=== PATIENT | male | born 1965 | race Caucasian/White ===

== ENCOUNTER 2019-04-15 15:33 | Emergency (ER) | payer OTHER, SELFPAY ==
[2019-04-15 15:35] VITALS: BP 161/88; PULSE 63; RESP 16; TEMP 36.6; O2SAT 98; BMI 28.6
--- NOTE | 2019-04-15 16:06 | EKG12_ITS ---
Test Reason : PALPITATIONS Blood Pressure : / mmHG Vent. Rate : 056 BPM Atrial Rate : 056 BPM P-R Int : 162 ms QRS Dur : 086 ms QT Int : 426 ms P-R-T Axes : 067 061 040 degrees QTc Int : 411 ms Sinus bradycardia Otherwise normal ECG Confirmed by ANANYA BRADSHAW, PINO ([id number]), restaurant expeditor GRISEL WARD ([id number]) on 04/19/2019 11:26:18 AM Referred By: ROSETTA Confirmed By:PINO HARE MD
--- NOTE | 2019-04-15 16:06 | ED.VIS.GEN ---
History of Present Illness Chief Complaint: Palpitations Detail of Chief Complaint: Palpitations, short of breath, syncope Informant: Patient, Family Onset: Weeks Current Severity: Mild Maximum Severity: Moderate Narrative: Patient presents with a one-week history of shortness of breath. He states he will to stop and take a few deep breaths to catch his breath. He feels like his heart is beating very hard during these times and somewhat irregularly. He states he feels intermittently lightheaded and dizzy. 3 days ago he got up at 12:30 in the morning to go the restroom. He did use the restroom and washed his hands and while standing there had a brief syncopal event. He fell and hit his knee against the doorway. He states he went back to bed and felt fine the rest of that day. Past Medical History - Allergies and Home Meds Allergies/Adverse Reactions: Allergies No Known Allergies Allergy (Verified 04/15/19 15:34) Primary Care Physician: Fuad Keith III, MD [Primary Care Provider] - As soon as possible Prior records reviewed: Yes Past Medical History: - - Reviewed Lives: Spouse/ Significant Other Review of Systems General: Denies: Chills, Fever Eyes: Denies: Visual changes - bilaterally ENT: Denies: Bilateral ear pain Cardiovascular: Reports: Chest pain, Palpitations Respiratory: Reports: Dyspnea. Denies: Cough, Sputum Gastrointestinal: Denies: Abdominal pain, Nausea, Vomiting Musculoskeletal: Reports: Arthralgias Skin: Denies: Rash Neurological: Denies: Headache, Weakness, Parasthesia Psych: Denies: Depression Allergy: Denies: Uticaria Physical Exam Vital Signs/Narrative: Vital Signs Temp Pulse Resp BP Pulse Ox 04/15/19 15:35 97.8 F 63 16 161/88 H 98 Inital Vital Signs reviewed: Yes General: Well nourished, Well developed Head: Normocephalic ENT: Moist mucous membranes Neck: Supple Cardiovascular: Regular rate, Regular rhythm Respiratory: No distress, CTA bilaterally Abdomen: Soft, Nontender, Nondistended Extremities: Nontender Skin: Normal color Neurological: Alert, Oriented x3 Psychological: Normal affect Diagnostic/Tx/Re-eval Impressions Chest X-Ray 04/15/19 16:08 IMPRESSION: Normal x-ray examination of the chest. Electronically Signed: Matt Drummond MD at 16:22 EDT , Service support , 04/15/19 16:08 Chest 1 View (Portable) [RAD] Stat Laboratory Results 04/15/19 04/15/19 04/15/19 16:15 16:15 16:15 WBC 5.4 RBC 5.01 Hgb 15.5 Hct 46.4 MCV 92.6 MCH 30.9 MCHC 33.4 RDW Std Deviation 42.3 RDW Coeff of Evan 12.3 Plt Count 160 MPV 9.8 Immature Gran % (Auto) 0.200 Neut % (Auto) 63.5 Lymph % (Auto) 23.3 [place] % (Auto) 9.7 Eos % (Auto) 2.4 Baso % (Auto) 0.9 Absolute Neuts (auto) 3.4 Absolute Lymphs (auto) 1.25 Nucleated RBC % 0 D-Dimer Quant (PE/DVT) 0.46 Sodium 140 Potassium 4.0 Chloride 106 Carbon Dioxide 32.0 Anion Gap 2 L BUN 21 H Creatinine 1.11 Estim Creat Clear Calc 83.50 Est GFR (MDRD) Af Amer 89 Est GFR (MDRD) Non-Af 73 BUN/Creatinine Ratio 18.9 Glucose 89 Calcium 9.3 Troponin I < 0.015 TSH 1.21 - EKG Initial EKG Interpretation: Sinus Bradycardia - Sinus bradycardia at 56 bpm. No acute ischemia. - Medical Decision Making Repeat evaluation patient is resting comfortably. He had no further episodes of palpitations or shortness of breath here. I did discuss with him that typically after syncopal episodes we will recommend observation for monitoring. Patient syncopal episode however occurred 3 days ago. I did recommend he follow with his primary care physician and may need to consider a Holter monitor if he continues to have symptoms. He states he will think about this but will definitely follow-up with his doctor. He was noted to have heart rates dropped into the upper 40s when laying at rest. I advised him that this could certainly make him lightheaded and dizzy, however the patient was not having symptoms at that time he was noted to have these low heart rates while in the emergency room. Patient and are both comfortable with outpatient follow-up. If patient worsens he will return to the ER immediately. ED Disposition - Plan for ED Patient: Disposition: Home or Assisted Living Diagnosis: Palpitations, Syncope Instructions: Palpitations, SYNCOPE, Unk Cause Referrals: Fuad Keith III, MD [Primary Care Provider] - As soon as possible
--- NOTE | 2019-04-15 16:08 | RAD_ITS ---
STUDY: X-RAY CHEST REASON FOR EXAM: Male, 54 years old. Shortness of breath TECHNIQUE: Single AP portable view of the chest. COMPARISON: None. FINDINGS: lunchroom monitor leads are present. The lungs are clear and expanded. There is no demonstrated pleural abnormality. Normal size heart. Normal mediastinum and anuradha. Normal visualized pulmonary arteries. Normal visualized aortic arch and descending thoracic aorta. Normal visualized thoracic spine. Normal visualized ribs, clavicles, and shoulders. There is no demonstrated abnormality of the visualized soft tissue structures of the upper abdomen. RAD/Chest 1 View (Portable) IMPRESSION: Normal x-ray examination of the chest. Electronically Signed: Matt Drummond MD at 16:22 EDT , Service support ,
[2019-04-15 16:20] LABS: Absolute Lymphocyte Count 1.25 X10^3/uL (0.83-4.51); Absolute Neutrophil Count 3.4 X10^3/uL (2.0-7.7); Basophil# 0.05 X10^3/uL; Basophil% 0.9 % (0-1); Eosinophil# 0.13 X10^3/uL; Eosinophils% 2.4 % (0-5); Hematocrit 46.4 % (40-54); Hemoglobin 15.5 g/dL (13.0-16.5); Lymphocyte # 1.25 X10^3/ul (4.0); Lymphocyte % 23.3 % (19-41); Mean Corp Hgb Conc 33.4 g/dL (32-36); Mean Corpuscular Hgb 30.9 pg (27.0-32.0); Mean Corpuscular Volume 92.6 fL (80-94); Mean Platelet Vol. 9.8 fl (6.2-12.0); Monocyte# 0.52 X10^3/uL; Monocyte% 9.7 % (0-10); NRBC Flagged by Analyzer 0 % (0-5); Neutrophil % 63.5 % (47-70); Platelet Count 160 K/mm3 (150-450); RBC Distribution Width CV 12.3 % (11.6-14.6); RBC Distribution Width SD 42.3 fl (35.1-43.9); Red Blood Count 5.01 M/mm3 (4.6-6.2); White Blood Count 5.4 K/mm3 (4.4-11.0)
[2019-04-15] MEDS: 0.9% Normal Saline 1,000 ML 150 ML IV (16:25)
[2019-04-15 16:27] VITALS: BP 137/80; PULSE 54; RESP 15; O2SAT 96
[2019-04-15 16:47] LABS: Anion Gap 2 (5-15); BUN 21 mg/dL (7-18); BUN/Creat Ratio 18.9 RATIO (10-20); Calcium,Total 9.3 mg/dL (8.5-10.1); Chloride 106 mmol/L (98-107); Creatinine, Serum 1.11 mg/dL (0.70-1.30); EST Glomerular Filtration Rate 73 mL/min (>60); Est Glom Filt Rate - Afr Amer 89 mL/min (>60); Glucose 89 mg/dL (74-106); Sodium Level 140 mmol/L (136-145); Thyroid Stim Hormone (TSH) 1.21 uIU/mL (0.358-3.74)
[2019-04-15 17:09] LABS: D-Dimer Quantitative (DVT/PE) 0.46 FEU/ug/m (0.27-0.49)
[2019-04-15 17:42] VITALS: BP 160/97; PULSE 49; RESP 11; O2SAT 97
[2019-04-15 18:13] VITALS: BP 152/99; PULSE 54; RESP 10; O2SAT 98
== END 2019-04-15 18:14 | disposition home or self-care (01) ==
PROVIDERS: Emergency Provider Emergency Medicine; Family Provider Family Medicine; PCP Family Medicine
DX: R00.2 Palpitations (principal); R55 Syncope and collapse
CPT/HCPCS: 71045; 80048; 84443; 84484; 85025; 85379; 93005; 99284; A4216

== ENCOUNTER 2021-09-11 08:22 | Outpatient (CLI) | payer OTHER, SELFPAY ==
--- NOTE | 2021-09-11 08:24 | EKG12_ITS ---
Test Reason : PREOP Blood Pressure : / mmHG Vent. Rate : 058 BPM Atrial Rate : 058 BPM P-R Int : 158 ms QRS Dur : 088 ms QT Int : 388 ms P-R-T Axes : 080 070 039 degrees QTc Int : 380 ms Sinus bradycardia Otherwise normal ECG Confirmed by ANANYA BRADSHAW, PINO ([id number]), newspaper or periodical editor GRISEL WARD ([id number]) on 09/12/2021 9:30:38 AM Referred By: THOR Confirmed By:PINO HARE MD
== END 2021-09-11 23:59 | disposition home or self-care (01) ==
LOC: PSN 08:22
PROVIDERS: PCP Family Medicine; Visit Provider Urology
DX: Z01.810 Encounter for preprocedural cardiovascular examination (principal)
CPT/HCPCS: 93005

== ENCOUNTER → 2025-05-17 | Outpatient (CLI) | payer OTHER, SELFPAY ==
[2025-05-17 13:12] LABS: Anion Gap 10 (5-15); BUN 18 mg/dL (4-19); BUN/Creat Ratio 17.2 RATIO (10-20); Calcium,Total 9.4 mg/dL (7.6-11.0); Carbon Dioxide 26.2 mmol/L (21.0-32.0); Chloride 103 mmol/L (98-108); Glucose 122 mg/dL (70-99); Potassium 3.9 mmol/L (3.3-5.1)
== END | disposition home or self-care (01) ==
LOC: LAB 11:30
PROVIDERS: PCP Pediatrics; Referring Provider Internal Medicine Cardiovascular Disease; Visit Provider Internal Medicine Cardiovascular Disease
DX: I48.92 Unspecified atrial flutter (principal)
CPT/HCPCS: 36415; 80048; 84443

== ENCOUNTER 2025-05-25 14:19 | Observation (INO) | payer OTHER, SELFPAY ==
[2025-05-24 10:19] VITALS: BMI 25.7
[2025-05-25] VITALS (9 sets, daily range): BP systolic 115–130; BP diastolic 68–81; PULSE 59–80; RESP 14–17; TEMP 36.6–36.7; O2SAT 95–98; BMI 26.4
--- NOTE | 2025-05-25 14:07 | ELECTROSTU_ITS ---
Electrophysiology Report Electrophysiology Report Procedure: Successful radiofrequency ablation for right sided cavo-isthmus dependent atrial flutter Indication: Recurrent atrial flutter Failing pharmacological rate control Findings: CONSENT Informed consent was obtained from the patient after explaining the procedural risks, benefits, and alternatives in detail. It was explained that the risks include but are not limited to pain, bleeding, infection, vascular injury, heart attack, stroke, pulmonary or peripheral embolism, abnormal heart rhythms, recurrence of the arrhythmia, heart block requiring permanent pacemaker implantation, cardiac perforation and tamponade, hemodynamic collapse, need for emergency surgery, adverse reaction to sedation, cardiac or respiratory arrest, and . A consent form with the signature of the patient was placed in the chart. PREPARATION The patient was brought to the EP lab in a fasting state. Peripheral IV access was obtained. Continuous ECG, blood pressure, and oxygen saturation monitoring were initiated. Self-adhesive external defibrillation pads were placed on the patient. In addition, conscious sedation with iv versed/fentanyl was administered. I was present with the patient for the duration of moderate sedation and supervised staff who had no other duties and monitored the patient for the entire procedure. Details of monitoring are stored in laboratory flow sheet. Chlorhexadine scrubs were performed to bilateral groins. The patient was prepped and draped in the usual sterile fashion. Baseline 12-LEAD ELECTROCARDIOGRAM sinus rhythm VENOUS ACCESS: Local anesthesia was achieved with 1% lidocaine injection. Right and left femoral vein access was obtained using the modified Seldinger technique. Four introducers sheaths: 7F x1 and 5F x 2 were placed in the left femoral vein and an long 8.5Fr RAMP sheath was advanced into the right femoral vein over J wires. BASELINE EP TESTING: The patient underwent electrophysiology study with coronary sinus catheter for left atrial recording and pacing. Refer to the scanned lab report for details. ENDOCARDIAL 3D MAPPING RIGHT ATRIAL THREE-DIMENSION MAPPING: Two quadrapolar catheter were advanced into the right atrium via the left femoral vein sheaths. One decapolar catheter was positioned in the Coronary sinus for LA pacing and then repositioned in the RA. Quadripolar catheters were positioned in the His and RV apical positions. Left and Right atrial, His and right ventricular signals were recorded. After baseline electrophysiologic testing, the patient was inducible for atrial flutter. Mapping showed this was a isthmus dependent clockwise flutter using post pacing intervals. Standard techniques for ablation of isthmus dependent atrial flutter were undertaken utilizing a 4 mm tip irrigated catheter. Post pacing intervals were used to determine that the flutter circuit was dependent on the cava tricuspid isthmus. CATHETER ABLATION: Radiofrequency energy was delivered utilizing a energy controlled system with power outputs ranging up to 35 avilez during continuous temperature and impedance monitoring. Radiofrequency applications ranged up to 60 seconds in duration. An impedance rise prompted discontinuation of radiofrequency energy and catheter tip examination. Multiple applications of RF energy were delivered in a linear fashion initiated at the tricuspid annulus and withdrawn to the superior aspect of the inferior vena cava/eustachian ridge. The atrial flutter terminated during RF ablation. It was noted patient had a pouch on the atrial side of the tricuspid isthmus. Further ablations were delivered to inside this pouch. After linear ablation, trans-isthmus conduction properties were assessed. Trans- isthmus conduction block was defined by a marked prolongation of the conduction time, as compared to the baseline, during pacing medial and lateral to the ablation line. In addition, widely split atrial electrograms with an isoelectric interval were demonstrated along the ablation line. After the catheter ablation endpoints were achieved, electroanatomical mapping was performed to confirm bidirectional isthmus block. END OF PROCEDURE: At the conclusion of the procedure, Protamine was administered to reverse anticoagulation. All catheters and introducers were removed, and manual pressure was held to achieve complete hemostasis. The patient tolerated the procedure well and was transferred to the recovery room in stable condition. I was present for and performed the entire procedure. FINDINGS: Sinus node recovery time was 1385 ms, CSNRT: 515 ms Antegrade Wenckebach cycle length was 490 ms. Atrial effective refractory period was 600/360 ms AV node effective refractory period was 600/200 ms Retrograde Wenckebach cycle length was 550 ms. Ventricular effective refractory period was 600/240 ms Baseline Isthmus conduction was 50 ms Post ablation Isthumus conduction was 150 ms CONTRAST None ESTIMATED BLOOD LOSS 20 mL Recommendations: 4 hours of bedrest. Ok for discharge to home in am.
--- OUTSIDE RECORDS SUMMARY | 2025-05-25 17:59 | XMS RPT_ITS | CCD ---
Author Organization [facility] Care Team Providers Care Piano Mechanic Name Role Phone DR JAMAL DAI Attending Unavailable MALAIKA, DR JAMAL Burgess Primary Care Unavailable DR JAMAL DAI Admitting Unavailable Dr. Deisy Mcgee Primary Care Provider Dr. Titus Rivera Attending Provider Dr. Guzman Cast Referring Provider [phone] Deisy Mcgee MD Primary Care Provider Deisy Mcgee MD Primary Care Provider Tannhof EMERGENCY PHYSICIAN.MANAGER ARMYRobertElizabeth Unavailable Gael EMERGENCY PHYSICIAN.MANAGER ARMY, Jet Unavailable [phone] OLY PENDLETON Primary Care Unavailable OLY PENDLETON Attending Unavailable SELF Referring Unavailable DEISY MCGEE Primary Care Unavailable DEISY MCGEE Referring Unavailable DEISY MCGEE Primary Care Unavailable JET MORIN Referring Unavailable DEISY MCGEE Primary Care Unavailable DEISY MCGEE Attending Unavailable Allergies Allergy Classification Reported Allergen(s) Allergy Type Date of Onset Reaction(s) Facility (14 sources) amLODIPine; Translations: [AMLODIPINE BESYLATE] Drug Allergy 07-19-2014 Other: See Comments [facility] (14 sources) Losartan; Translations: [LOSARTAN] Drug Allergy 08-15-2014 Other: See Comments [facility] Medications Current Medications Medication Drug Class(es) Dates Sig (Normalized) Sig (Original) aspirin 81 mg delayed release oral tablet (1 source) Platelet Aggregation Inhibitor, Nonsteroidal Anti-inflammatory Drug Start: 04-15-2019 take 81 mg by mouth once daily Aspirin Active 81 MG PO DAILY April 15, 2019 4:29pm atorvastatin 10 mg oral tablet (15 sources) HMG-CoA Reductase Inhibitor Start: 02-12-2024 End: 07-28-2024 take 1 tablet by mouth once daily atorvastatin (LIPITOR) 10 mg tablet Indications: Hyperlipidemia LDL goal Take 1 tablet by mouth once daily. 30 tablet 11 07/28/2024 Active Start: 07-15-2023 End: 08-14-2023 take 1 tablet by mouth once daily atorvastatin (LIPITOR) 10 mg tablet Indications: Hyperlipidemia LDL goal Take 1 tablet by mouth once daily. 30 tablet 11 07/15/2023 08/14/2023 Discontinued Start: 07-18-2022 take 1 tablet by artie th once daily atorvastatin (LIPITOR) 10 mg tablet Indications: Hyperlipidemia LDL goal Take 1 tablet by mouth once daily. 30 tablet 11 07/18/2022 Active Start: 07-12-2021 take 1 tablet by artie th once daily atorvastatin (LIPITOR) 10 mg tablet Indications: Hyperlipidemia LDL goal Take 1 tablet by mouth once daily. 30 tablet 11 07/12/2021 Active Start: 04-15-2019 take 20 mg by mouth once daily Atorvastatin Active 20 MG PO DAILY April 15, 2019 4:29pm Comment on above: Take 1 tablet by artie th once daily. azithromycin 250 mg oral tablet (1 source) Macrolide Antimicrobial Start: 06-04-20 End: 06-09-20 azithromycin (ZITHROMAX Z-MADALYN) 250 mg tablet Indications: Bronchitis Take 2 tablets day one, then, 1 tablet daily until gone. 6 tablet 0 06/04/2022 06/09/2022 Active Comment on above: Take 2 tablets day o ne, then, 1 tablet daily until gone. codeine phosphate 2 mg/ml / guaiFENesin 20 mg/ml oral solution (3 sources) Opioid Agonist Start: 04-07-20 End: 04-14-20 take 5 mL by mouth every six hours as needed for cough and cough codeine-guaiFENesin (GUAIFENESIN AC) 10-100 mg/5 mL syrup Indications: Acute cough Take 5 mL by mouth four times a day as needed for cough for up to 7 days. 118 mL 0 04/07/2023 04/14/2023 Active Start: 05-31-2022 End: 06-07-2022 take 5 mL by mouth every six hours as needed for cough and cough codeine-guaiFENesin (GUAIFENESIN AC) 10-100 mg/5 mL syrup Indications: Acute cough Take 5 mL by mouth four times daily as needed for cough for up to 7 days. 118 mL 0 05/31/2022 06/07/2022 Active Comment on above: Take 5 mL by mouth f our times daily as needed for cough for up to 7 days. Take 5 mL by mouth f our times a day as needed for cough for up to 7 days. hydroCHLOROthiazide 12.5 mg / lisinopril 20 mg oral tablet (12 sources) Thiazide Diuretic, Angiotensin Converting Enzyme Inhibitor Start: 03-24-20 take 1 tablet by mouth once daily in the morning lisinopril-hyd roCHLOROthiazi de (ZESTORETIC) 20-12.5 mg per tablet Take 1 tablet by mouth every morning. 30 tablet 11 03/24/2024 Active Start: 07-15-2023 End: 08-14-2023 take 1 tablet by mouth once daily lisinopril-hydroCHLOROthiazide (ZESTORET IC) 20-12.5 mg per tablet Take 1 tablet by mouth once daily. 30 tablet 07/15/2023 08/14/2023 Discontinued Start: 07-18-2022 take 1 tablet by artie th once daily lisinopril-hydroCHLOROthiazide (PRINZIDE,ZESTORETIC) 20-12.5 mg per tablet Take 1 tablet by mouth once daily. 30 tablet 07/18/2022 Active Start: 07-12-2021 take 1 tablet by artie th once daily lisinopril-hydroCHLOROthiazide (PRINZIDE,ZESTORETIC) 20-12.5 mg per tablet Take 1 tablet by mouth once daily. 30 tablet 07/12/2021 Active Start: 04-15-2019 Lisinopril-Hyd rochlorothiazide Active 1 EACH PO DAILY April 15, 2019 4:29pm Comment on above: Take 1 tablet by artie th once daily. Completed/Discontinued Medications Medication Drug Class(es) Dates Sig (Normalized) Sig (Original) benzonatate 100 mg oral capsule (6 sources) Non-narcotic Antitussive Start: 2 End: 3 take 1 capsule by mouth every eight hours as needed benzonatate (TESSALON PERLES) 100 mg capsule Take 1 capsule by mouth three times daily as needed for cough. 21 capsule 1 05/26/2022 04/07/2023 Discontinued Comment on above: Take 1 capsule by mo ut three times daily as needed for cough. hydroCHLOROthiazide 12.5 mg oral tablet (2 sources) Thiazide Diuretic Start: 4 End: 4 take 1 tablet by mouth once daily hydroCHLOROthiazide 12.5 mg tablet Indications: Essential hypertension, benign Take 1 tablet by mouth once daily. 30 tablet 5 02/18/2024 03/24/2024 Discontinued lisinopril 20 mg oral tablet (4 sources) Angiotensin Converting Enzyme Inhibitor Start: 4 End: 4 take 1 tablet by mouth once daily lisinopril (ZESTRIL) 20 mg tablet Indications: Essential hypertension, benign Take 1 tablet by mouth once daily. 30 tablet 6 08/14/2023 03/24/2024 Discontinued Comment on above: [facility] predniSONE 20 mg oral tablet (3 sources) Start: 2 End: 3 take 2 tablets by mouth once daily predniSONE (DELTASONE) 20 mg tablet Indications: Bronchitis Take 2 tablets by mouth once daily. 10 tablet 0 06/04/2022 08/22/2022 Discontinued Comment on above: Take 2 tablets by mo [facility] once daily. tamsulosin hydrochloride 0.4 mg oral capsule (2 sources) alpha-Adrenergi c Roland Start: 2 End: 2 take 1 capsule by mouth once daily at bedtime tamsulosin (FLOMAX) 0.4 mg Indications: Kidney stone Take 1 capsule by mouth daily at bedtime. 30 capsule 3 09/13/2021 05/31/2022 Discontinued Comment on above: Take 1 capsule by mo [facility] daily at bedtime. Problems Active Problems Problem Classification Problem Date Documented Da te Episodic/Chronic Anxiety disorders (13 sources) Anxiety; Translations: [Anxiety disorder, unspecified] Onset: 07-05-2015 07-05-2015 Chronic Cardiac dysrhythmias (1 source) Unspecified atrial flutter; Translations: [Atrial flutter, unspecified type (HCC)] Onset: 04-14-2025 Chronic Cardiac dysrhythmias (1 source) Palpitations; Translations: [Palpitations] Episodic Chronic obstructive pulmonary disease and bronchiectasis (1 source) Bronchitis; Translations: [Bronchitis, not specified as acute or chronic] Episodic Diabetes mellitus without complication (20 sources) Impaired fasting glycemia; Translations: [Impaired fasting glucose] Onset: 07-12-2016 07-12-2016 Episodic Disorders of lipid metabolism (20 sources) Hyperlipidemia; Translations: [Hyperlipidemia, unspecified] Onset: 09-12-2005 06-04-2015 Chronic Essential hypertension (19 sources) Benign essential hypertension; Translations: [Essential (primary) hypertension] Onset: 09-12-2005 09-12-2005 Chronic Immunizations and screening for infectious disease (2 sources) Vaccination needed; Translations: [Encounter for immunization] Onset: 04-03-2025 08-14-2023 Episodic Other lower respiratory disease (2 sources) Cough; Translations: [Acute cough] Episodic Other nervous system disorders (13 sources) Disorder of the peripheral nervous system; Translations: [Hereditary and idiopathic neuropathy, unspecified] Onset: 07-11-2016 07-11-2016 Chronic Other screening for suspected conditions (not mental disorders or infectious disease) (3 sources) Patient encounter status; Translations: [Encounter for screening for malignant neoplasm of prostate] Onset: 04-03-2025 Episodic Syncope (1 source) Syncope; Translations: [Syncope and collapse] Episodic Viral infection (1 source) Disease caused by 2019-nCoV; Translations: [COVID-19] Episodic Past or Other Problems Problem Classification Problem Date Documented Da te Episodic/Chronic Nonspecific chest pain (5 sources) Chest pain; Translations: [Chest pain, unspecified] Onset: 01-28-2006 Resolved: 06-30-2014 06-30-2014 Episodic Other connective tissue disease (5 sources) Lateral epicondylitis; Translations: [Lateral epicondylitis, unspecified elbow] Onset: 09-15-2008 Resolved: 06-30-2014 06-30-2014 Episodic Other nutritional; endocrine; and metabolic disorders (5 sources) Metabolic syndrome X; Translations: [Dysmetabolic syndrome X] Onset: 08-18-2007 Resolved: 07-05-2015 07-05-2015 Chronic Other nutritional; endocrine; and metabolic disorders (5 sources) Hypercalcemia; Translations: [Hypercalcemia] Onset: 07-12-2016 Resolved: 07-16-2017 07-16-2017 Chronic Results Test Name Value Interpretation Reference Range Facility CNOVon 04-14-2025 CNOV Office Visit (FAMPWS ) FREDY HODGES ([id number]) 1965 M Date Time Provider Department 04/14/25 2:00 PM [facility] During your visit today, we recorded the following information about you: Pulse Respiration Blood pressure Weight 75/minute 6/minute 116/84 87.7 kg Height 1.765 m Oly Pendleton MD 04/16/2025 11:08 AM Signed Family Medicine OUTPATIENT VISIT April 14, 2025 CC: HLD FU HPI: 60 year old male patient with a history of Neuropathy HLD last LDL 81 on atorvastatin 10 HTN on lisinopril HCTZ Anxiety Prediabetes A1c 5.7 A flutter on eliquis, metoprol Cigar once a week. Here to follow up echo and a flutter. Labs on 04/10 CBC unremarkable CMP grossly wnl LDL 81 PSA wnl, TSH normal Stable prediabetes He began to have exercise intolerance and fatigue on March 25, and had hypotension. Increased fluid intake. Hypotension resolved but then following week this event reoccured. He had appt with Dr Gee on and ddx with A flutter on ECG. Started on metoprolol 25mg PO for rate control and eliquis 5. Since last appt, he does feel intermittent palpitations. The 10-year ASCVD risk score (Roselyn BOWENS, et al., 2019) is: 9% Values used to calculate the score: Age: 60 years Clinically relevant sex: Male Is Non- : No Diabetic: No Tobacco smoker: Yes Systolic Blood Pressure: 116 mmHg Is BP treated: Yes HDL Cholesterol: 68 mg/dL Total Cholesterol: 162 mg/dL Review of Systems PAIN ASSESSMENT: Negative for pain, history of chronic pain, or current treatment for a chronic pain condition. GENERAL: No weight loss, or fevers HEENT: Negative for frequent or significant headaches RESPIRATORY: Negative for cough, wheezing, shortness of breath CARDIOVASCULAR: Negative for chest pain, PND or orthopnea. Palpitations GI: No nausea, vomiting, or diarrhea or abdominal pain. No RI bleeding or melana : No history of dysuria, frequency, urgency, or change in urine appearance NEURO: No history of headaches, numbness, weakness, or changes to vision or hearing Health maintenance: Pneumococcal Vaccine: 50+(3 of 3 - PCV20 or PCV21) due on 07/16/2022 Depression Screening due on 02/11/2025 Covid-19 Vaccine(2024- season) due on 02/20/2025 Allergies: ALLERGIES Allergen Reactions Losartan Other: See Comments urinary difficulties Norvasc [Amlodipine* Other: See Comments urinary difficulty Medications: apixaban (ELIQUIS) 5 mg tab(s) Take 1 tablet by mouth two times a day. metoprolol succinate ER (TOPROL XL) 25 mg 24 hr tablet Take 1 tablet by mouth once daily. lisinopril-hydroCHLOROthiaz breezy (ZESTORETIC) 20-12.5 mg per tablet Take 1 tablet by mouth every morning. atorvastatin (LIPITOR) 10 mg tablet Take 1 tablet by mouth once daily. Past Medical History: PAST MEDICAL HISTORY Diagnosis Date Asthma (HCC) Mixed hyperlipidemia Hyperlipidemia Unspecified essential hypertension Essential hypertension Social History: SOCIAL HISTORY[1] Family History: Family History Problem Relation Age of Onset Heart Father HEART BYPASS Diabetes Father Diabetes Mother Diabetes Sister Hypertension Brother Hypertension Brother Hypertension Brother Hypertension Father Hypertension Mother BP 116/84 Pulse 75 Resp 6 Ht 176.5 cm (5' 9.5") Wt 87.7 kg (193 lb 6.4 oz) SpO2 99% BMI 28.15 kg/m? General: Awake, alert, not in acute distress RESIDENTIAL APPLIANCE REPAIR TECHNICIAN: Answering questions appropriately. No abnormal posturing or positioning. Speech is normal. Strength grossly intact. RESP: Clear lungs bilateral with good air entry, No increased work of breathing CVS: RRR, No murmur. Pulses 2+. GI: Abdomen is soft, non distended, non tender. No masses or hepatomegaly appreciated. Skin/Other: No rashes or lesions. HEENT: pupils equal Extremities: No peripheral edema, swelling or erythema of lower extremities. Labs: Reviewed the following: Pertinent labs as outlined above Latest Ref Rng 04/10/2025 WBC 3.70 - 11.00 k/uL 3.66 (L) RBC 4.20 - 6.00 m/uL 5.09 Hemoglobin 13.0 - 17.0 g/dL 15.8 Hematocrit 39.0 - 51.0 % 47.5 MCV 80.0 - 100.0 fL 93.3 MCH 26.0 - 34.0 pg 31.0 MCHC 30.5 - 36.0 g/dL 33.3 RDW-CV 11.5 - 15.0 % 12.5 Platelet Count 150 - 400 k/uL 159 MPV 9.0 - 12.7 fL 10.4 Neut% % 56.0 Abs Neut (ANC) 1.45 - 7.50 k/uL 2.05 Lymph% % 28.4 Abs Lymph 1.00 - 4.00 k/uL 1.04 [place]% % 10.7 Abs [place] <0.87 k/uL 0.39 Eosin% % 3.0 Abs Eosin <0.46 k/uL 0.11 Baso% % 1.6 Abs Baso <0.11 k/uL 0.06 Immature Gran % % 0.3 IMMATURE GRANS (ABS) <0.10 k/uL <0.03 NRBC /100 WBC 0.0 Absolute nRBC <0.01 k/uL <0.01 DTYPE Auto Protein, Total 6.3 - 8.0 g/dL 6.8 Albumin 3.9 - 4.9 g/dL 4.4 Calcium 8.5 - 10.2 mg/dL 9.8 Bilirubin, Total 0.2 - 1.3 mg/dL 0.8 Alkaline Phosphatase 38 - 113 U/L 44 AST 14 - 40 U/L 15 ALT 10 - 54 U/L 15 Glucos (more content not included)... Normal [facility] ECHOon 04-13-2025 Echocardiography Echocardiography Rep ort: Transthoracic Echo [facility] Date of service: 04/13/2025 10:58:47 AM UP WORKER Ordering physician: DEISY MCGEE Exam indication: Abnormal ECG Technologist: Unique Sanchez [facility] Interpreting physician: Giovanni Nunes MD PATIENT: Name: MR. FREDY HODGES : 1965 Age: 60 years Gender: M History of hypertension, dyslipidemia and arrhythmia. Primary rhythm: sinus. Height: 180.30 cm BSA: 2.12 m Weight: 89.60 kg BMI: 27.6 kg/m Heart rate 93 bpm Blood pressure 144/90 mmHg Color Doppler was utilized to interrogate the cardiac valves assessed and spectral Doppler was utilized to determine the flow velocities and pressure gradients reported in this exam. MEASUREMENTS: Value Indexed Normal Max aortic dimension 2.8 cm Ao < 3.8 Left atrial volume 46 ml (biplane A-L) 22 ml/m Tabitha <= 34 LV ID (diastole) 4.3 cm (2D) 2.03 cm/m LV ID (systole) 3.0 cm (2D) 1.44 cm/m IVS, leaflet tips 0.8 cm (2D) Posterior wall thickness 0.8 cm (2D) Left ventricular mass 107 g (2D) 50 g/m LV stroke volume 58 ml (2D biplane) LV end diastolic volume 114 ml (2D biplane) 53.7 ml/m 34<=EDVi<75 LV end systolic volume 56 ml (2D biplane) 26.5 ml/m Ejection Fraction 51 % (2D biplane) EF > 52 FINDINGS: LEFT VENTRICLE The left ventricle is normal in size. Left ventricular systolic function is normal. Indeterminate left ventricular diastolic function due to E/a fusion. Wall Motion: All scored segments are normal. RIGHT VENTRICLE The right ventricle is normal in size. Right ventricular systolic function is normal. RV systolic tissue Doppler velocity is 12.0 cm/s. Tricuspid annular displacement is 2.0 cm. Estimated right ventricular systolic pressure is 24 mmHg consistent with normal pulmonary artery pressures. Estimated right atrial pressure is 3 mmHg (although IVC not seen). LEFT ATRIUM The left atrial cavity is normal in size. RIGHT ATRIUM The right atrial cavity is normal in size (RA area = 17.3 cm ). MITRAL VALVE The mitral valve leaflets are structurally normal. There is trace (trace - 1+) mitral valve regurgitation. TRICUSPID VALVE The tricuspid valve leaflets are structurally normal. There is trace (trace - 1+) tricuspid valve regurgitation. AORTIC VALVE The aortic valve cusps are structurally normal. There is no aortic valve regurgitation. The peak gradient is 6 mmHg (peak velocity = 121.8 cm/s). PULMONIC VALVE The pulmonic valve cusps are structurally normal. There is no pulmonic valve regurgitation. AORTA The visualized aorta is normal in size. Measurements - Mid ascending aorta 2.8 cm. PULMONARY ARTERIES The pulmonary arteries are normal. INTERATRIAL SEPTUM There is no evidence of intracardiac shunting as detected by Doppler. PERICARDIUM The pericardium is normal. There is no pericardial effusion. There is an epicardial fat pad. CONCLUSIONS: - Exam indication: Abnormal ECG - The left ventricle is normal in size. Left ventricular systolic function is normal. EF = 51 5% (2D biplane) Indeterminate left ventricular diastolic function due to E/a fusion. - The right ventricle is normal in size. Right ventricular systolic function is normal. - There are no significant valvular abnormalities. - The patient has not had a prior CC echocardiographic exam for comparison. * * * Final * * * CC [employer] : [id number] Normal [facility] CBC W Auto Differential pane l (Bld)on 04-10-2025 Basophils (Bld) [#/Vol] 0.06 10*3/uL Normal <0.11 [facility] Comment on above: Order Comment: Speci men Type: BLOOD SPECIMEN Ordering Facility: [facility] Address: [address] [place] [address] Performed By: #### 5 7021-8 #### [facility] CLIA [id number] [address] [place] [address] [place] Basophils/100 WBC (Bld) 1.6 % Normal [facility] Comment on above: Order Comment: Speci men Type: BLOOD SPECIMEN Ordering Facility: [facility] Address: [address] [place] [address] Performed By: #### 5 7021-8 #### [facility] CLIA [id number] [address] [place] [address] [place] Differential cell count method Nom (Bld) Auto Normal [facility] Comment on above: Order Comment: Speci men Type: BLOOD SPECIMEN Ordering Facility: [facility] Address: [address] [place] [address] Performed By: #### 5 7021-8 #### [facility] CLIA [id number] [address] [place] [address] [place] Eosinophils (Bld) [#/Vol] 0.11 10*3/uL Normal <0.46 [facility] Comment on above: Order Comment: Speci men Type: BLOOD SPECIMEN Ordering Facility: [facility] Address: [address] [place] [address] Performed By: #### 5 7021-8 #### [facility] CLIA [id number] [address] [place] [address] [place] Eosinophils/100 WBC (Bld) 3.0 % Normal [facility] Comment on above: Order Comment: Speci men Type: BLOOD SPECIMEN Ordering Facility: [facility] Address: [address] [place] [address] Performed By: #### 5 7021-8 #### [facility] CLIA [id number] [address] [place] [address] [place] Erythrocyte distribution width (RBC) [Ratio] 12.5 % Normal 11.5-15.0 [facility] Comment on above: Order Comment: Speci men Type: BLOOD SPECIMEN Ordering Facility: [facility] Address: [address] [place] [address] Performed By: #### 5 7021-8 #### [facility] CLIA [id number] [address] [place] [address] [place] Hematocrit (Bld) [Volume fraction] 47.5 % Normal 39.0-51.0 [facility] Comment on above: Order Comment: Speci men Type: BLOOD SPECIMEN Ordering Facility: [facility] Address: [address] [place] [address] Performed By: #### 5 7021-8 #### [facility] CLIA [id number] [address] [place] [address] [place] Hemoglobin (Bld) [Mass/Vol] 15.8 g/dL Normal 13.0-17.0 [facility] Comment on above: Order Comment: Speci men Type: BLOOD SPECIMEN Ordering Facility: [facility] Address: [address] [place] [address] Performed By: #### 5 7021-8 #### [facility] CLIA [id number] [address] [place] [address] [place] Immature granulocytes (Bld) [#/Vol] 10*3/uL Normal <0.10 [facility] Comment on above: Order Comment: Speci men Type: BLOOD SPECIMEN Ordering Facility: [facility] Address: [address] [place] [address] Performed By: #### 5 7021-8 #### [facility] CLIA [id number] [address] [place] [address] [place] Immature granulocytes/100 WBC (Bld) 0.3 % Normal [facility] Comment on above: Order Comment: Speci men Type: BLOOD SPECIMEN Ordering Facility: [facility] Address: [address] [place] [address] Performed By: #### 5 7021-8 #### [facility] CLIA [id number] [address] [place] [address] [place] Lymphocytes (Bld) [#/Vol] 1.04 10*3/uL Normal 1.00-4.00 [facility] Comment on above: Order Comment: Speci men Type: BLOOD SPECIMEN Ordering Facility: [facility] Address: [address] [place] [address] Performed By: #### 5 7021-8 #### [facility] CLIA [id number] [address] [place] [address] [place] Lymphocytes/100 WBC (Bld) 28.4 % Normal [facility] Comment on above: Order Comment: Speci men Type: BLOOD SPECIMEN Ordering Facility: [facility] Address: [address] [place] [address] Performed By: #### 5 7021-8 #### [facility] CLIA [id number] [address] [place] [address] [place] MCH (RBC) [Entitic mass] 31.0 pg Normal 26.0-34.0 [facility] Comment on above: Order Comment: Speci men Type: BLOOD SPECIMEN Ordering Facility: [facility] Address: [address] [place] [address] Performed By: #### 5 7021-8 #### [facility] CLIA [id number] [address] [place] [address] [place] MCHC (RBC) [Mass/Vol] 33.3 g/dL Normal 30.5-36.0 [facility] Comment on above: Order Comment: Speci men Type: BLOOD SPECIMEN Ordering Facility: [facility] Address: [address] [place] [address] Performed By: #### 5 7021-8 #### [facility] CLIA [id number] [address] [place] [address] [place] MCV (RBC) [Entitic vol] 93.3 fL Normal 80.0-100.0 [facility] Comment on above: Order Comment: Speci men Type: BLOOD SPECIMEN Ordering Facility: [facility] Address: [address] [place] [address] Performed By: #### 5 7021-8 #### [facility] CLIA [id number] [address] [place] [address] [place] Monocytes (Bld) [#/Vol] 0.39 10*3/uL Normal <0.87 [facility] Comment on above: Order Comment: Speci men Type: BLOOD SPECIMEN Ordering Facility: [facility] Address: [address] [place] [address] Performed By: #### 5 7021-8 #### [facility] CLIA [id number] [address] [place] [address] [place] Monocytes/100 WBC (Bld) 10.7 % Normal [facility] Comment on above: Order Comment: Speci men Type: BLOOD SPECIMEN Ordering Facility: [facility] Address: [address] [place] [address] Performed By: #### 5 7021-8 #### [facility] CLIA [id number] [address] [place] [address] [place] Neutrophils (Bld) [#/Vol] 2.05 10*3/uL Normal 1.45-7.50 [facility] Comment on above: Order Comment: Speci men Type: BLOOD SPECIMEN Ordering Facility: [facility] Address: [address] [place] [address] Performed By: #### 5 7021-8 #### [facility] CLIA [id number] [address] [place] [address] [place] Neutrophils/100 WBC (Bld) 56.0 % Normal [facility] Comment on above: Order Comment: Speci men Type: BLOOD SPECIMEN Ordering Facility: [facility] Address: [address] [place] [address] Performed By: #### 5 7021-8 #### [facility] CLIA [id number] [address] [place] [address] [place] Nucleated RBC (Bld) [#/Vol] 10*3/uL Normal <0.01 [facility] Comment on above: Order Comment: Speci men Type: BLOOD SPECIMEN Ordering Facility: [facility] Address: [address] [place] [address] Performed By: #### 5 7021-8 #### [facility] CLIA [id number] [address] [place] [address] [place] Nucleated RBC/100 WBC (Bld) [Ratio] 0.0 /100 WBC Normal [facility] Comment on above: Order Comment: Speci men Type: BLOOD SPECIMEN Ordering Facility: [facility] Address: [address] [place] [address] Performed By: #### 5 7021-8 #### [facility] CLIA [id number] [address] [place] [address] [place] Platelet mean volume (Bld) [Entitic vol] 10.4 fL Normal 9.0-12.7 [facility] Comment on above: Order Comment: Speci men Type: BLOOD SPECIMEN Ordering Facility: [facility] Address: [address] [place] [address] Performed By: #### 5 7021-8 #### [facility] CLIA [id number] [address] [place] [address] [place] Platelets (Bld) [#/Vol] 159 10*3/uL Normal 150-400 [facility] Comment on above: Order Comment: Speci men Type: BLOOD SPECIMEN Ordering Facility: [facility] Address: [address] [place] [address] Performed By: #### 5 7021-8 #### [facility] CLIA [id number] [address] [place] [address] [place] RBC (Bld) [#/Vol] 5.09 10*6/uL Normal 4.20-6.00 [facility] Comment on above: Order Comment: Speci men Type: BLOOD SPECIMEN Ordering Facility: [facility] Address: [address] [place] [address] Performed By: #### 5 7021-8 #### [facility] CLIA [id number] [address] [place] [address] [place] WBC (Bld) [#/Vol] 3.66 10*3/uL Low 3.70-11.00 [facility] Comment on above: Order Comment: Speci men Type: BLOOD SPECIMEN Ordering Facility: [facility] Address: [address] [place] [address] Performed By: #### 5 7021-8 #### [facility] CLIA [id number] [address] [place] [address] [place] Comprehensive metabolic 2000 panelon 04-10-2025 Albumin [Mass/Vol] 4.4 g/dL Normal 3.9-4.9 [facility] Comment on above: Order Comment: Speci men Type: BLOOD SPECIMEN Ordering Facility: [facility] Address: [address] [place] [address] Performed By: #### 2 4323-8, 23626-8, 3015-3 #### [facility] CLIA [id number] [facility] [place] [address] [place] ALP [Catalytic activity/Vol] 44 U/L Normal 38-113 [facility] Comment on above: Order Comment: Speci men Type: BLOOD SPECIMEN Ordering Facility: [facility] Address: [address] [place] [address] Performed By: #### 2 4323-8, 50515-7, 3015-3 #### [facility] CLIA [id number] [address] [place] [address] [place] ALT [Catalytic activity/Vol] 15 U/L Normal 10-54 [facility] Comment on above: Order Comment: Speci men Type: BLOOD SPECIMEN Ordering Facility: [facility] Address: [address] [place] [address] Performed By: #### 2 4323-8, 33230-9, 3 #### [facility] CLIA [id number] [address] [place] [address] [place] Anion gap [Moles/Vol] 10 mmol/L Normal 8-15 [facility] Comment on above: Order Comment: Speci men Type: BLOOD SPECIMEN Ordering Facility: [facility] Address: [address] [place] [address] Performed By: #### 2 4323-8, 54602-5, 3 #### [facility] CLIA [id number] [address] [place] [address] [place] AST [Catalytic activity/Vol] 15 U/L Normal 14-40 [facility] Comment on above: Order Comment: Speci men Type: BLOOD SPECIMEN Ordering Facility: [facility] Address: [address] [place] [address] Performed By: #### 2 4323-8, 69508-1, 3015-3 #### [facility] CLIA [id number] [address] [place] [address] [place] Bilirubin [Mass/Vol] 0.8 mg/dL Normal 0.2-1.3 [facility] Comment on above: Order Comment: Speci men Type: BLOOD SPECIMEN Ordering Facility: [facility] Address: [address] [place] [address] Performed By: #### 2 4323-8, 93279-0, 6-3 #### [facility] CLIA [id number] [address] [place] [address] [place] Calcium [Mass/Vol] 9.8 mg/dL Normal 8.5-10.2 [facility] Comment on above: Order Comment: Speci men Type: BLOOD SPECIMEN Ordering Facility: [facility] Address: [address] [place] [address] Performed By: #### 2 4323-8, 30670-7, 3015-3 #### [facility] CLIA [id number] [address] [place] [address] [place] Chloride [Moles/Vol] 104 mmol/L Normal 98-107 [facility] Comment on above: Order Comment: Speci men Type: BLOOD SPECIMEN Ordering Facility: [facility] Address: [address] [place] [address] Performed By: #### 2 4323-8, 67448-4, 3015-3 #### [facility] CLIA [id number] [address] [place] [address] [place] CO2 [Moles/Vol] 28 mmol/L Normal 22-30 [facility] Comment on above: Order Comment: Speci men Type: BLOOD SPECIMEN Ordering Facility: [facility] Address: [address] [place] [address] Performed By: #### 2 4323-8, 78330-9, 6-3 #### [facility] CLIA [id number] [address] [place] [address] [place] Creatinine [Mass/Vol] 1.08 mg/dL Normal 0.73-1.22 [facility] Comment on above: Order Comment: Speci men Type: BLOOD SPECIMEN Ordering Facility: [facility] Address: [address] [place] [address] Performed By: #### 2 4323-8, 16074-2, 3016-3 #### [facility] CLIA [id number] [address] [place] [address] [place] eGFRcr SerPlBld CKD-EPI 2020 79 mL/min/1.73m??? Normal >=60 [facility] Comment on above: Order Comment: Jasbir valentine Type: BLOOD SPECIMEN Ordering Facility: [facility] Address: [address] [place] [address] Result Comment: Kortney mated Glomerular Filtration Rate (eGFR) is calculated using the 2020 CKD-EPI creatinine equation. This equation utilizes serum creatinine, sex, and age as parameters. The creatinine assay has traceable calibration to isotope dilution-mass spectrometry. Refer to KDIGO guidelines for clinical interpretation. In patients with unstable renal function, e.g. those with acute kidney injury, the eGFR may not accurately reflect actual GFR. Performed By: #### 2 4323-8, 38105-1, 6-3 #### [facility] CLIA [id number] [address] [place] [address] [place] Glucose [Mass/Vol] 118 mg/dL High 74-99 [facility] Comment on above: Order Comment: Jasbir valentine Type: BLOOD SPECIMEN Ordering Facility: [facility] Address: [address] [place] [address] Result Comment: The [place] Diabetes Association (ADA) provides guidance for cutoff values for fasting glucose and random glucose. The ADA defines fasting as no caloric intake for at least 8 hours. Fasting plasma glucose results between 100 to 125 mg/dL indicate increased risk for diabetes (prediabetes). Fasting plasma glucose results greater than or equal to 126 mg/dL meet the criteria for diagnosis of diabetes. In the absence of unequivocal hyperglycemia, results should be confirmed by repeat testing. In a patient with classic symptoms of hyperglycemia or hyperglycemic crisis, random plasma glucose results greater than or equal to 200 mg/dL meet the criteria for diagnosis of diabetes. Reference: Standards of Medical Care in Diabetes 2016, [place] Diabetes Association. Diabetes Care. 2016.39(Suppl 1). Performed By: #### 2 4323-8, 84990-4, 3015-3 #### [facility] CLIA [id number] [address] [place] [address] [place] Potassium [Moles/Vol] 4.6 mmol/L Normal 3.7-5.1 [facility] Comment on above: Order Comment: Speci men Type: BLOOD SPECIMEN Ordering Facility: [facility] Address: [address] [place] [address] Performed By: #### 2 4323-8, 73667-8, 3 #### [facility] CLIA [id number] [address] [place] [address] [place] Protein [Mass/Vol] 6.8 g/dL Normal 6.3-8.0 [facility] Comment on above: Order Comment: Speci men Type: BLOOD SPECIMEN Ordering Facility: [facility] Address: [address] [place] [address] Performed By: #### 2 4323-8, 78742-5, 3 #### [facility] CLIA [id number] [address] [place] [address] [place] Sodium [Moles/Vol] 142 mmol/L Normal 136-144 [facility] Comment on above: Order Comment: Speci men Type: BLOOD SPECIMEN Ordering Facility: [facility] Address: [address] [place] [address] Performed By: #### 2 4323-8, 40645-9, 3 #### [facility] CLIA [id number] [address] [place] [address] [place] Urea nitrogen [Mass/Vol] 19 mg/dL Normal 9-24 [facility] Comment on above: Order Comment: Speci men Type: BLOOD SPECIMEN Ordering Facility: [facility] Address: [address] [place] [address] Performed By: #### 2 4323-8, 89647-3, 3015-3 #### [facility] CLIA [id number] [address] HbA1c (Bld)on 04-10-2025 Average glucose Estimated from glycated hemoglobin (Bld) [Mass/Vol] 117 mg/dL Normal [facility] Comment on above: Order Comment: Jasbir valentine Type: BLOOD SPECIMEN Ordering Facility: [facility] Address: [address] [place] [address] Result Comment: eAG: (Estimated average glucose) is a calculated value from HgbA1c and is student services representative of the average blood glucose level in the last 2-3 month period. Performed By: #### 5 5454-3 #### [facility] CLIA [id number] [address] [place] [address] [place] HbA1c (Bld) [Mass fraction] 5.7 % High 4.3-5.6 [facility] Comment on above: Order Comment: Jasbir valentine Type: BLOOD SPECIMEN Ordering Facility: [facility] Address: [address] [place] [address] Result Comment: [place] Diabetes Association guidelines indicate that patients with HgbA1c in the range 5.7-6.4% are at increased risk for development of diabetes, and intervention by lifestyle modification may be beneficial. HgbA1c greater or equal to 6.5% is considered diagnostic of diabetes. Performed By: #### 5 5454-3 #### [facility] CLIA [id number] [address] [place] [address] [place] [facility] Lipid 1996 panelon Cholesterol [Mass/Vol] 162 mg/dL Normal <200 [facility] Comment on above: Order Comment: Jasbir valentine Type: BLOOD SPECIMEN Ordering Facility: [facility] Address: [address] [place] [address] Result Comment: <200 mg/dL, Desirable 200-239 mg/dL, Borderline high >239 mg/dL, High Performed By: #### 2 4323-8, 63534-8, 3016-3 #### [facility] CLIA [id number] [address] [place] [address] [place] Cholesterol in HDL [Mass/Vol] 68 mg/dL Normal >39 [facility] Comment on above: Order Comment: Jasbir valentine Type: BLOOD SPECIMEN Ordering Facility: [facility] Address: [address] [place] [address] Result Comment: 40-5 9 mg/dL, Acceptable >59 mg/dL, High: Negative risk factor for coronary heart disease <40 mg/dL, Low: Positive risk factor for coronary heart disease Performed By: #### 2 4323-8, 80436-0, 6-3 #### [facility] CLIA [id number] [address] [place] [address] OF [facility] Cholesterol in LDL [Mass/Vol] 81 mg/dL Normal <100 [facility] Comment on above: Order Comment: Danutadarshan valentine Type: BLOOD SPECIMEN Ordering Facility: [facility] Address: [address] [place] [address] Result Comment: <100 mg/dL, Optimal 100-129 mg/dL, Near optimal/above optimal 130-159 mg/dL, Borderline high 160-189 mg/dL, High >189 mg/dL, Very high Secondary prevention optimal LDL Cholesterol levels are recommended to be <70 mg/dL LDL cholesterol is calculated using the Mcfarland-NIH equation. Performed By: #### 2 4323-8, 22195-4, 3015-3 #### [facility] CLIA [id number] [address] [place] [address] [place] Cholesterol in LDL/Cholesterol in HDL [Mass ratio] 1.19 {ratio} Normal <2.54 [facility] Comment on above: Order Comment: Jasbir valentine Type: BLOOD SPECIMEN Ordering Facility: [facility] Address: [address] [place] [address] Result Comment: Refe rence: 1. National Cholesterol Education Program ATP III Guideline At-A-Glance Quick Desk Reference: National Heart, Lung, and Blood [place]. National Institutes of Health. 2001: NIH Publication No. 01-3305. 2. An International Atherosclerosis Society position paper: global recommendations for the management of dyslipidemia: executive summary, Atherosclerosis. 2014: 232(2):410-413. Performed By: #### 2 4323-8, 29531-3, 3015-3 #### [facility] CLIA [id number] [address] [place] [address] [place] Cholesterol in VLDL [Mass/Vol] 10 mg/dL Normal <30 [facility] Comment on above: Order Comment: Speci men Type: BLOOD SPECIMEN Ordering Facility: [facility] Address: [address] [place] [address] Performed By: #### 2 4323-8, 62210-9, 3015-3 #### [facility] CLIA [id number] [address] [place] [address] [place] Cholesterol non HDL [Mass/Vol] 94 mg/dL Normal <130 [facility] Comment on above: Order Comment: Danutai men Type: BLOOD SPECIMEN Ordering Facility: [facility] Address: [address] [place] [address] Result Comment: <130 mg/dL, Optimal 130-159 mg/dL, Near optimal/above optimal 160-189 mg/dL, Borderline high 190-219 mg/dL, High >219 mg/dL, Very high Secondary prevention optimal non HDL Cholesterol levels are recommended to be <100 mg/dL Performed By: #### 2 4323-8, 95232-9, 3 #### [facility] CLIA [id number] [address] [place] [address] [place] Cholesterol.total/C holesterol in HDL [Mass ratio] 2.38 {ratio} Normal <5.10 [facility] Comment on above: Order Comment: Speci men Type: BLOOD SPECIMEN Ordering Facility: [facility] Address: [address] [place] [address] Performed By: #### 2 4323-8, 68648-9, 3 #### [facility] CLIA [id number] [address] [place] [address] [place] FASTING TIME 12 hrs Normal [facility] Comment on above: Order Comment: Speci men Type: BLOOD SPECIMEN Ordering Facility: [facility] Address: [address] [place] [address] Performed By: #### 2 4323-8, 71221-0, 3016-3 #### [facility] CLIA [id number] [address] [place] [address] [place] Triglyceride [Mass/Vol] 67 mg/dL Normal <150 [facility] Comment on above: Order Comment: Speci men Type: BLOOD SPECIMEN Ordering Facility: [facility] Address: [address] [place] [address] Result Comment: <150 mg/dL, Normal 150-199 mg/dL, Borderline high 200-499 mg/dL, High >499 mg/dL, Very high Performed By: #### 2 4323-8, 03813-0, 6-3 #### [facility] CLIA [id number] [address] [place] [address] [place] PSA/PROSTATE SPECIFIC ANTIGE N SCREENINGon 04-10-2025 Prostate specific Ag [Mass/Vol] 0.77 ng/mL Normal <2.60 [facility] Comment on above: Order Comment: Speci men Type: BLOOD SPECIMEN Ordering Facility: [facility] Address: [address] [place] [address] Result Comment: Tota l PSA test methodology used is the Electrochemiluminescence Immunoassay by [employer]. Total PSA values by differing methodologies cannot be interchanged. Performed By: #### P SAS1 #### [facility] CLIA [id number] [address] [place] [address] [place] TSH SerPl-aCncon 04-10-2025 TSH Qn 1.710 m[IU]/L Normal 0.270-4.200 [facility] Comment on above: Order Comment: Speci men Type: BLOOD SPECIMEN Ordering Facility: [facility] Address: [address] [place] [address] Performed By: #### 2 4323-8, 90966-9, 6-3 #### [facility] CLIA [id number] [address] [place] [address] [place] CNOVon 04-03-2025 CNOV Office Visit (FAMPWS ) FREDY HODGES ([id number]) 1965 M Date Time Provider Department 04/03/25 2:00 PM DEISY MCGEE During your visit today, we recorded the following information about you: Pulse Respiration Blood pressure Weight 102/minute 16/minute 130/90 89.6 kg Deisy Mcgee MD 04/03/2025 3:50 PM Signed Chief Complaint Patient presents with: Blood Pressure: low Fatigue Immunizations: Flu vaccination HPI Recording using Alere software for draft documentation of the visit was discussed with the patient/authorized student services representative; all questions welcomed and answered. Patient/authorized student services representative agreed to proceed Maurilio is a 60-year-old male with a history of HTN, presenting with episodes of fatigue and lightheadedness during exercise, as well as concerns about fluctuating blood pressure readings. Maurilio reports that two weeks ago, during his routine 3-mile run, he experienced sudden fatigue and a sensation of heaviness in his legs approximately a quarter mile into the run, prompting him to stop and walk. Upon returning home, he measured his blood pressure, which was 93/62 mmHg, noting this as the lowest reading he had ever recorded. Suspecting dehydration, he increased his fluid intake, and the following day, his blood pressure was 125/81 mmHg. Due to the initial low reading, he refrained from taking his prescribed lisinopril for 2-3 days, fearing further reduction in blood pressure, but continued his cholesterol medication. During this period, he experienced intermittent lightheadedness, although hewas able to push mow his yard, which involves navigating a hill, without any symptoms. Over the next several days, his blood pressure readings returned to what he considered normal. Maurilio attempted to resume running the following Thursday but again experienced significant fatigue and heaviness in his legs after a quarter mile, leading him to stop and walk. He notes that while he has felt tired during runs before, he has always been able to push through, but this time he was unable to continue. He was able to walk 3 miles without issue. He denies any dyspnea, chest pain, or heaviness during these episodes, attributing the inability to continue running to a possible mental block. He reports no increase in day-to-day fatigue compared to the past few years, though he occasionally dozes off while watching TV in the evenings. Maurilio has been monitoring his pulse, noting readings of 72, 74, 80, 54, 57, and 56 bpm over the past week. Today, his pulse was 102 bpm after walking in the morning and 74 bpm at noon. He has resumed taking lisinopril for the past 3 days. He mentions feeling a difference in his heart rate since the initial low blood pressure episode, with occasional sensations prompting him to take deep breaths, which he can do without difficulty. These sensations are more noticeable when he is sitting on the couch in the evening and less so when he is busy at work. Past medical history, appointments, medications, allergies reviewed. Previous Medical History PAST MEDICAL HISTORY Diagnosis Date Asthma (HCC) Mixed hyperlipidemia Hyperlipidemia Unspecified essential hypertension Essential hypertension Previous Surgical History PAST SURGICAL HISTORY Procedure Laterality Date COLONOSCOPY FLX DX W/COLLJ SPEC WHEN PFRMD 08/24/2015 LITHOTRIPSY XTRCORP SHOCK WAVE N/A 09/05/2021 Family History FAMILY HISTORY Problem Relation Age of Onset Heart Father HEART BYPASS Diabetes Father Diabetes Mother Diabetes Sister Hypertension Brother Hypertension Brother Hypertension Brother Hypertension Father Hypertension Mother Patient Allergies ALLERGIES Allergen Reactions Losartan Other: See Comments urinary difficulties Norvasc [Amlodipine* Other: See Comments urinary difficulty Current Medications Current Outpatient Medications on File Prior to Visit Medication Sig lisinopril-hydroCHLOROthiaz breezy (ZESTORETIC) 20-12.5 mg per tablet Take 1 tablet by mouth every morning. atorvastatin (LIPITOR) 10 mg tablet Take 1 tablet by mouth once daily. No current facility-administered medications on file prior to visit. Social History SOCIAL HISTORY[1] EXAM: BP 130/90 Pulse 102 Resp 16 Wt 89.6 kg (197 lb 8.5 oz) SpO2 100% BMI 27.55 kg/m? General Appearance: Well appearing, alert, in no acute distress, well-hydrated, well nourished.. Lungs: Lungs clear to auscultation. No wheezing, rhonchi, rales.. Heart: mostly regular, occ irregulra beat noted. Health Maintenance List Pneumococcal Vaccine: 50+(3 of 3 - PCV20 or PCV21) due on 07/16/2022 Annual PCP Team Chronic Disease Visit due on 02/11/2025 Depression Screening due on 02/11/2025 Influenza Vaccine(1) due on 02/20/2025 Covid-19 Vaccine( - 2024- season) due on 02/20/2025 Col (more content not included)... Normal [facility] Grupo 04-03-2025 CNPN Nurse Triage (DUSTIN ) FREDY HODGES ([id number]) 1965 M Date Time Provider Department 04/03/25 DEISY MCGEE During your visit today, we recorded the following information about you: Unique Banks, KATHLEEN 04/03/2025 9:24 AM Signed Reason for Conversation Fatigue and Blood Pressure Background Patient calls and states that he has not been able to run the 3 miles that he normally runs. Patient reports that he feels fatigue and tired. Patient states that when he had the first episode of this his BP was 93/62, pulse 98. Disposition See PCP Within 2 Weeks- Patient scheduled to see Dr. Mcgee today 04/03/2025 Care advice reviewed with patient, patient stated understanding. Patient advised to contact office or seek evaluation in urgent care or ER if symptoms persist or gets worse. Reason for Disposition Fatigue is a chronic symptom (recurrent or ongoing AND present > 4 weeks) 1. BLOOD PRESSURE: 93/62; 125/81, 80- 10/5; 130/93; This Morning BP 146/93- Did not take BP medications yet. 2. ONSET: 03/22- 3. HOW: Automatic home BP monitor 4. HISTORY: Denies 5. MEDICINES: Lisinopril 6. PULSE RATE: Pulse was 98 on 03/25; Pulse 73 this morning. 7. OTHER SYMPTOMS: Denies 1. DESCRIPTION: Patient feels ok now. Patient has had episodes where he cannot run 3 miles that he normally does. 2. SEVERITY: Yes 3. ONSET: Since 03/25 4. CAUSE: Not drinking enough fluids; Low BP 5. NEW MEDICINES: Denies 6. OTHER SYMPTOMS: Denies No Additional Information on file. Protocols Used Weakness (Generalized) and Bvjohki-Ntvul-JS Blood Pressure - Arj-Vpuhn-LY Allergies As of Date: 04/03/2025 Noted Allergy Reaction LOSARTAN 08/15/2014 14 - Other: See Comments Comments: urinary difficulties NORVASC (AMLODIPINE BESYLATE) 07/19/2014 14 - Other: See Comments Comments: urinary difficulty Date Reviewed: 02/12/2024 Reviewed by: Tanya Mcgraw MA - Fully Assessed Reason for Visit: Fatigue [46] Blood Pressure [15] Prescriptions as of 04/03/2025 - lisinopril-hydroCHLOROthiaz breezy (ZESTORETIC) 20-12.5 mg per tablet Take 1 tablet by mouth every morning. - atorvastatin (LIPITOR) 10 mg tablet Take 1 tablet by mouth once daily. Problem List As Of Date 04/03/2025 Noted Resolved Hyperlipidemia LDL goal <100 [E78.5] 09/12/2005 BENIGN HYPERTENSION [I10] 09/12/2005 Chest pain, unspecified [R07.9] 01/28/2006 06/30/2014 Dysmetabolic syndrome X [E88.810] 08/18/2007 07/05/2015 Lateral epicondylitis of elbow [M77.10] 09/15/2008 06/30/2014 Anxiety [F41.9] 07/05/2015 Hereditary and idiopathic peripheral neuropathy*07/11/2016 Impaired fasting glucose [R73.01] 07/12/2016 Hypercalcemia [E83.52] 07/12/2016 07/16/2017 Disposition Location/POS Recorded See PCP Within 2 We* 09:20 AM 04/03/25 What would patient/caregiver have done without intervention? Made an appointment [4] Patient/Caregiver understands and will follow disposition? Yes, will follow disposition [54] Encounter Status:Closed by UNIQUE BANKS on 04/03/25 Normal [facility] ECG COMPLETEon 04-03-2025 ECG COMPLETE Ventricular Rate : 8 3 BPM Atrial Rate : 294 BPM QRS Duration : 110 ms Q-T Interval : 388 ms QTC Calculation(Bazett) : 455 ms Calculated P [place] : 262 degrees Calculated R [place] : 53 degrees Calculated T [place] : 10 degrees ATRIAL FLUTTER WITH VARIABLE A-V BLOCK ABNORMAL ECG Confirmed by MD BAUMANN QARAB ([id number]) on 04/05/2025 12:00:54 PM NAME : FREDY HODGES PID : [id number] : 1965 Gender : Male Race : ORD : [id number] Procedure Date : Apr 03 2025 14:31:13 Edit Date : Apr 05 2025 12:01:00 Diagnosis: ATRIAL FLUTTER WITH VARIABLE A-V BLOCK ABNORMAL ECG Confirmed by MD BAUMANN QARAB ([id number]) on 04/05/2025 12:00:54 PM Test Reason : I10 Essential hypertension, benign Location : 136 : [place] Overread By : MD BAUMANN QARAB Edited By : MD BAUMANN QARAB Referred By : DEISY MCGEE Acquired by : Madelyn [facility]YTON [facility], [facility] CNPN Telephone (4CQ) FREDY HODGES ([id number]) 1965 M Date Time Provider Department 02/22/25 DEISY MCGEE 4CQ During your visit today, we recorded the following information about you: Елена Guzman 02/22/2025 3:10 PM Signed Patient is requesting lab orders for his upcoming physical Jet Morin APRN.VENKATESH 02/23/2025 9:24 AM Signed Orders filed. Jet Morin APRN.Frannie Ho MA 02/23/2025 10:12 AM Signed Pt notified and instructed to be fasting for the labs. Frannie Payton MA Allergies As of Date: 02/22/2025 Noted Allergy Reaction LOSARTAN 08/15/2014 14 - Other: See Comments Comments: urinary difficulties NORVASC (AMLODIPINE BESYLATE) 07/19/2014 14 - Other: See Comments Comments: urinary difficulty Date Reviewed: 02/12/2024 Reviewed by: Tanya Mcgraw MA - Fully Assessed Reason for Visit: Orders [681] Primary Visit Diagnosis:Essential hypertension, benign [I10] Other Visit Diagnoses:Hyperlipidemia LDL goal <100 [E78.5] Impaired fasting glucose [R73.01] Wellness examination [Z00.00] Order(s):LIPID PANEL, FASTING [SQLIPB] Order #: [id number] FUTURE COMPREHENSIVE METABOLIC PANEL [SQCMP] Order #: [id number] FUTURE COMPLETE BLOOD COUNT AND DIFFERENTIAL [SQCBCDIF] Order #: [id number] FUTURE PSA/PROSTATE SPECIFIC ANTIGEN SCREENING [SQPSAS1] Order #: [id number] FUTURE HEMOGLOBIN A1C [NLQNU5A] Order #: [id number] FUTURE Prescriptions as of 02/23/2025 - atorvastatin (LIPITOR) 10 mg tablet Take 1 tablet by mouth once daily. - lisinopril-hydroCHLOROthiaz breezy (ZESTORETIC) 20-12.5 mg per tablet Take 1 tablet by mouth every morning. Problem List As Of Date 02/22/2025 Noted Resolved Hyperlipidemia LDL goal <100 [E78.5] 09/12/2005 BENIGN HYPERTENSION [I10] 09/12/2005 Chest pain, unspecified [R07.9] 01/28/2006 06/30/2014 Dysmetabolic syndrome X [E88.810] 08/18/2007 07/05/2015 Lateral epicondylitis of elbow [M77.10] 09/15/2008 06/30/2014 Anxiety [F41.9] 07/05/2015 Hereditary and idiopathic peripheral neuropathy*07/11/2016 Impaired fasting glucose [R73.01] 07/12/2016 Hypercalcemia [E83.52] 07/12/2016 07/16/2017 Encounter Status:Closed by FRANNIE PAYTON on 02/23/25 Normal [facility] EMERGENCY REPORTon 2 EMERGENCY REPORT [facility] EMERGENCY ROOM REPORT NAME ACCOUNT SEX AGE ADMIT DISCHARGE PT MED. RECORD# NUMBER DATE DATE TYPE FREDY HODGES [id number] M 56 09/05/21 09/05/21 3 [id number] ROOM: ER DATE OF : 1965 DICTATING PHYSICIAN: Jamal Dai CHIEF COMPLAINT: Flank and side pain. HISTORY OF PRESENT ILLNESS: Patient states that he had done some moving of some heavy stuff in the garage yesterday but did not recall any specific injury or trauma. Slept well through the night. He got up to go to the bathroom at about five o'clock, at which point he had onset of right flank and side pain that seemed to radiate somewhat to the right lower quadrant area. It has been constant and quite severe since then to the point that he really could not take it any more. Along with this he had nausea, vomiting, and diaphoresis. No significant urinary symptoms. Has not had anything like this in the past. No previous kidney stones, etc. PAST MEDICAL HISTORY: Significant for asthma. MEDICATIONS: Per medication reconciliation list. ALLERGIES: No allergies. SOCIAL HISTORY: Patient is . Does not smoke or drink alcohol. PHYSICAL EXAMINATION: 56-year-old pleasant male. Alert, appropriate. Appears uncomfortable but not toxic. His skin is slightly pale but warm and dry. HEENT exam normal. Neck is supple. Lungs are clear. Cardiac exam normal. Does not seem to have any flank or abdominal tenderness. He does have pain along the right abdomen. No masses. Bowel sounds are present. Good peripheral pulses. Good capillary refill. Normal neurovascular exam. Vital signs as noted. Blood pressure elevated at 147/109. EMERGENCY DEPARTMENT COURSE AND TREATMENT: IV of normal saline was placed. He was given about a liter and a half of saline while here. Initially given Zofran, Toradol, and Dilaudid IV, which did help significantly with his pain. Lab studies showed a CBC that was completely normal. CMP: BUN and creatinine 24 and 1.25. Glucose 183. Urinalysis: 20 - [address] KUB showed a 4 x 6 mm stone at the distal right ureter with hydronephrosis. He did start to get a little bit more pain. I gave him another dose of Dilaudid IV, which helped markedly with his pain. He was give a dose of oral Toradol, Bentyl, and Flomax. Will plan on discharge to follow up with Urology as needed. Page 1 of 2 FREDY HODGES Emergency Room Report FREDY HODGES : 1965 DIAGNOSIS: Renal colic / right ureteral calculus. PLAN/DISPOSITION: He was given prescriptions for oral Toradol, Percocet, Zofran, and Flomax. Is to return if symptoms worsen. Dictated By: Jamal Dai MD 09/05/21 10:28 JOB #: [id number] Transcribed By: octavio 09/05/21 17:47 Electronically signed by: HUANG Dai M.D. 09/16/21 07:08 Page 2 of 2 TRACIEFREDY Emergency Room Report Normal [facility] 12 Lead EKGon 09-11-2021 12 Lead EKG [facility] [address] [place] [address] 12 Lead EKG 09/11/21 0827 MR#: [id number] Acct: [id number] Name: FREDY HODGES Rep #: [id number] : 1965 56 From: Titus Rivera MD Attending Dr: Dr. Guzman Cast MD Status: REG CLI Ordering Dr: Guzman Cast MD Date: 09/11/21 Location: [facility] Sex: M C Admitted: Test Reason : PREOP Blood Pressure : / mmHG Vent. Rate : 058 BPM Atrial Rate : 058 BPM P-R Int : 158 ms QRS Dur : 088 ms QT Int : 388 ms P-R-T Axes : 080 070 039 degrees QTc Int : 380 ms Sinus bradycardia Otherwise normal ECG Confirmed by ANANYA BRADSHAW, TITUS ([id number]), proposal editor CLEMENTINE WARD ([id number]) on 09/12/2021 9:30:38 AM Referred By: THOR Confirmed By:TITUS RIVERA MD 09/12/21 0930 Date Titus Rivera MD CC: Dr. Guzman Cast MD; Dr. Deisy Mcgee MD Signed Normal [facility] CBC + DIFFon 09-05-2021 Baso # 0.00 x10EE3/UL Normal 0.00 - 0.10 [facility] Comment on above: Performed By: #### 2 88993 #### [facility],[address] [place] [address]015 Basophils/100 WBC (Bld) 0.7 % Normal 0.0 - 2.0 [facility] Comment on above: Performed By: #### 2 80470 #### [facility],[address] [place] [address] CBC + DIFF Normal [facility] Comment on above: Result Comment: CBC- COMPLETE BLOOD COUNT Performed By: #### 2 13357 #### [facility],[address] [place] [address] EO # 0.10 x10EE3/UL Normal 0.00 - 0.50 [facility] Comment on above: Performed By: #### 2 10784 #### [facility],[address] [place], [place] [address] Eosinophils/100 WBC (Bld) 2.0 % Normal 0.0 - 7.0 [facility] Comment on above: Performed By: #### 2 24238 #### [facility],[address] [place] [address] Erythrocyte distribution width (RBC) [Ratio] 13.1 % Normal 12.0 - 15.6 [facility] Comment on above: Performed By: #### 2 88472 #### [facility],[address] [place] [address] Hematocrit (Bld) [Volume fraction] 46.8 % Normal 40.0 - 52.0 [facility] Comment on above: Performed By: #### 2 54439 #### [facility],[address] [place], [place] [address] Hemoglobin (Bld) [Mass/Vol] 15.3 g/dL Normal 13.0 - 17.5 [facility] Comment on above: Performed By: #### 2 37294 #### [facility],[address] [place] [address] Lymph # 1.30 x10EE3/UL Normal 0.80 - 2.80 [facility] Comment on above: Performed By: #### 2 92557 #### [facility],[address] [place] [address] 85814 Lymphocytes/100 WBC (Bld) 28.4 % Normal 20.0 - 45.0 [facility] Comment on above: Performed By: #### 2 84614 #### [facility],[address] [place] [address] MANUAL DIFF N/A Normal [facility] Comment on above: Performed By: #### 2 64860 #### [facility],[address] [place] [address] MCH (RBC) [Entitic mass] 30 pg Normal 27 - 33 [facility] Comment on above: Performed By: #### 2 78025 #### [place] [address] MCHC 33 X10 3 Normal 32 - 36 [facility] Comment on above: Performed By: #### 2 67832 #### [facility],[address] [place] [address] 11974 MCV (RBC) [Entitic vol] 92 fL Normal 81 - 98 [facility] Comment on above: Performed By: #### 2 91812 #### [facility],[address] [place] [address] 58409 [place] # 0.40 x10EE3/UL Normal 0.20 - 1.00 [facility] Comment on above: Performed By: #### 2 95538 #### [facility],[address] [place] [address] 63314 MONOS % 9.8 % Normal 0.0 - 10.0 [facility] Comment on above: Performed By: #### 2 16152 #### [facility],[address] [place] [address] 34237 Morphology Will (Bld) [Interp] N/A Normal [facility] Comment on above: Performed By: #### 2 55207 #### [facility],[address] [place] [address] 81344 Neut # 2.70 x10EE3/UL Normal 1.50 - 7.10 [facility] Comment on above: Performed By: #### 2 82849 #### [facility],[address] [place] [address] 88941 Neutrophils/100 WBC (Bld) 59.1 % Normal 46.0 - 76.0 [facility] Comment on above: Performed By: #### 2 67270 #### [facility],[address] [place] [address] 08902 PLATELET 169 x10EE3/UL Normal 150 - 450 [facility] Comment on above: Performed By: #### 2 06282 #### [facility],[address] [place] [address] 08520 Platelet mean volume (Bld) [Entitic vol] 8.1 fL Normal 6.4 - 10.5 [facility] Comment on above: Result Comment: AUTO MATED DIFFERENTIAL Performed By: #### 2 44388 #### [facility],[address] [place] [address] 40038 RBC 5.06 x 10EE6/UL Normal 4.50 - 6.00 [facility] Comment on above: Performed By: #### 2 58737 #### [facility],[address] [place] [address] 45162 WBC 4.6 x 10EE3/UL Normal 4.5 - 10.8 [facility] Comment on above: Performed By: #### 2 77529 #### [facility],[address] [place] [address]13 CMP with eGFRon 09-05-2021 AGE 56 years Normal [facility] Comment on above: Performed By: #### 2 42231 #### [facility],[address] [place] [address] 69031 Albumin [Mass/Vol] 4.1 g/dL Normal 3.4 - 5.0 [facility] Comment on above: Performed By: #### 2 87849 #### [facility],[address] [place] [address] 47197 Albumin/Globulin [Mass ratio] 1.2 {ratio} Normal 0.9 - 1.6 [facility] Comment on above: Performed By: #### 2 83765 #### [facility],[address] [place] [address] 47924 ALK PHOS 48 U/L Normal 46 - 116 [facility] Comment on above: Performed By: #### 2 09787 #### [facility],[address] [place] [address] 77508 ALT [Catalytic activity/Vol] 24 U/L Normal 16 - 63 [facility] Comment on above: Performed By: #### 2 53150 #### [facility],[address] [place] [address] 80907 Anion gap [Moles/Vol] 11 mmol/L Normal 10 - 20 [facility] Comment on above: Performed By: #### 2 74857 #### [facility],[address] [place] [address] 42347 AST [Catalytic activity/Vol] 21 U/L Normal 15 - 37 [facility] Comment on above: Performed By: #### 2 73401 #### [facility],[address] [place] [address] 14886 B/C RATIO 19 ratio Normal 0 - 30 [facility] Comment on above: Performed By: #### 2 27861 #### [facility],[address] [place] [address] 15491 Bilirubin [Mass/Vol] 0.8 mg/dL Normal 0.2 - 1.0 [facility] Comment on above: Performed By: #### 2 16038 #### [facility],[address] [place] [address] 74879 Calcium [Mass/Vol] 9.3 mg/dL Normal 8.5 - 10.1 [facility] Comment on above: Performed By: #### 2 95126 #### [facility],[address] [place], [place] [address] Chloride [Moles/Vol] 105 mmol/L Normal 98 - 107 [facility] Comment on above: Performed By: #### 2 03163 #### [facility],[address] [place] [address] CMP with eGFR Normal [facility] Comment on above: Result Comment: COMP REHENSIVE METABOLIC PANEL Performed By: #### 2 86587 #### [facility],[address] [place] [address] CO2 [Moles/Vol] 29.7 mmol/L Normal 21.0 - 32.0 [facility] Comment on above: Performed By: #### 2 65007 #### [facility],[address] [place], [place] [address] Creatinine [Mass/Vol] 1.25 mg/dL Normal 0.70 - 1.30 [facility] Comment on above: Performed By: #### 2 79250 #### [facility],[address] [place] [address] eGFR 60 ML/MINUTE Normal 60 - 999 [facility] Comment on above: Performed By: #### 2 79879 #### [place] [id number] GFR/1.73 sq M.predicted among non-blacks MDRD (S/P/Bld) [Vol rate/Area] mL/min/{1.73_m2} Normal 60 - 999 [facility] Comment on above: Result Comment: ACCO RDING TO THE NATIONAL KIDNEY DISEASE EDUCATION PROGRAM(NKDE), A NORMAL eGFR IS A VALUE GREATER THAN OR EQUAL TO 60 ML/MIN/1.73 SQ METERS. CHRONIC KIDNEY DISEASE: <60mL/MIN/1.73 SQ METERS KIDNEY FAILURE: <15mL/MIN/1.73 SQ METERS THIS TEST SHOULD ONLY BE USED FOR PATIENTS 18 YEARS OF AGE AND OLDER. Performed By: #### 2 84648 #### [address] [address] Globulin (S) [Mass/Vol] 3.5 g/dL Normal 1.5 - 3.8 [facility] Comment on above: Performed By: #### 2 10931 #### [address] [address] Glucose [Mass/Vol] 183 mg/dL High 74 - 106 [facility] Comment on above: Performed By: #### 2 73160 #### [address] [address] Potassium [Moles/Vol] 4.1 mmol/L Normal 3.5 - 5.1 [facility] Comment on above: Performed By: #### 2 18633 #### [address] [address] Protein [Mass/Vol] 7.6 g/dL Normal 6.4 - 8.2 [facility] Comment on above: Performed By: #### 2 50520 #### [address] [address] Sodium [Moles/Vol] 142 mmol/L Normal 136 - 145 [facility] Comment on above: Performed By: #### 2 40148 #### [facility],[address] [place] [address] 12529 Urea nitrogen [Mass/Vol] 24 mg/dL High 7 - 18 [facility] Comment on above: Performed By: #### 2 46241 #### [address] [address] [address] KUB (KIDNEY STONE PROTOCO L)on 09-05-2021 CT KUB (KIDNEY STONE PROTOCOL) [place] [address] Patient: FREDY HODGES Phone#: : 1965 Age: 56 Gender: M Pt. Type: ER Account: [id number] Location: 052 Ordering: JAMAL DAI Exam Date: 09/05/20218:24 Family Phys: Charge Code: [id number] Physician: Brooks Order #: [id number] DLP Dose#: 12.50 PROCEDURE: CT ABDOMEN AND PELVIS WITHOUT CONTRAST COMPARISON: None. INDICATIONS: Abdominal pain. TECHNIQUE: After obtaining the patient's consent, CT images of the abdomen and pelvis were created without non-ionic intravenous contrast material. All CT scans at this facility use dose modulation, iterative reconstruction, and/or weight based dosing when appropriate to reduce radiation dose to as low as reasonably achievable. IV CONTRAST: No IV contrast used,0ml TOTAL DOSE: 12.50 CTDIvol(mGy) FINDINGS: Evaluation of the solid organs and soft tissues is limited in the absence of intravenous contrast. KIDNEYS: There is an obstructing stone at the distal right ureter measuring 0.4 x 0.6 cm contributing to mild hydronephrosis and hydroureter. There is a nonobstructing left renal stone measuring 0.1 cm. No left hydronephrosis or hydroureter. ADRENALS: Normal. No mass or enlargement. URINARY BLADDER: Urinary bladder is decompressed. LIVER: Unremarkable in contour BILIARY: Gallbladder is present. PANCREAS: Unremarkable in contour SPLEEN: Unremarkable in contour AORTA/VASCULAR: No aortic aneurysm. Atherosclerotic calcifications of the aorta and branch vessels. RETROPERITONEUM: Limited evaluation for adenopathy in the absence of contrast BOWEL/MESENTERY: No bowel obstruction or dilatation. There is a large duodenal diverticulum. There is heavy diverticulosis of the transverse, descending and sigmoid colon. Continued Report - Page 2 of 2 Patient: FREDY HODGES Phone#: : 1965 Age: 56 Gender: M Pt. Type: ER Account: [id number] Location: 052 Ordering: JAMAL DAI Exam Date: 09/05/2021/8:24 Family Phys: Charge Code: [id number] Physician: Brooks Order #: [id number] DLP Dose#: 12.50 There is a moderate to large stool burden throughout the colon. The appendix is unremarkable containing air. ABDOMINAL WALL: There are bilateral fat containing inguinal hernias. PELVIC NODES: Normal. No adenopathy. PELVIC ORGANS: The prostate indents the base of the bladder measuring 4.3 x 4.2 by 4.3 cm. There is a calcification in the prostate. BONES: Disc height loss at T11-12, T12-L1, and L5-S1 LUNG BASES: Normal. No visible pulmonary or pleural disease. OTHER: Negative. CONCLUSION: 1. Obstructing stone in the right distal ureter resulting in moderate hydronephrosis and hydroureter 2. Extensive diverticulosis 3. Constipation Dictated by: Alpa Teran MD on 09/05/2021 at 8:44 Approved by: Alpa Teran MD on 09/05/2021 at 8:57 Normal [facility] URINALYSISon 09-05-2021 Amorphous NONE Normal [facility] Comment on above: Performed By: #### 2 24035 #### [place] [address] Bacteria NONE Normal [facility] Comment on above: Performed By: #### 2 50922 #### [place] [address] Bilirubin Ql (U) Negative Normal NORMAL: NEGATIVE [facility] Comment on above: Performed By: #### 2 37636 #### [place] [address] Casts NONE Normal [facility] Comment on above: Performed By: #### 2 79689 #### [facility],[address] [place] [address] Clarity (U) sl.cloudy Normal NORMAL: CLEAR [facility] Comment on above: Performed By: #### 2 83691 #### [place] [address] Color (U) claudia Normal NORMAL: YELLOW [facility] Comment on above: Performed By: #### 2 11207 #### [place] [address] Crystals LM Nom (Urine sed) NONE Normal [facility] Comment on above: Performed By: #### 2 20933 #### [facility],[address] [place] [address] 25452 Epi Cells NONE Normal [facility] Comment on above: Performed By: #### 2 53839 #### [facility],[address] [place] [address] 51013 Glucose Ql (U) NORM Normal NORMAL: NORMAL [facility] Comment on above: Performed By: #### 2 84555 #### [facility],[address] [place] [address] 11416 Hemoglobin Ql (U) 250 Abnormal NORMAL: NEGATIVE [facility] Comment on above: Performed By: #### 2 56821 #### [facility],[address] [place] [address] 96210 Ketone 15 Abnormal NORMAL: NEGATIVE [facility] Comment on above: Performed By: #### 2 72881 #### [facility],[address] [place] [address] 32237 Leukocytes Negative Normal NORMAL: NEGATIVE [facility] Comment on above: Performed By: #### 2 74296 #### [facility],[address] [place] [address] 56454 Mucous NONE Normal [facility] Comment on above: Performed By: #### 2 91745 #### [facility],[address] [place] [address] 08007 Nitrite Ql (U) Negative Normal NORMAL: NEGATIVE [facility] Comment on above: Performed By: #### 2 79331 #### [facility],[address] [place] [address] 28369 pH (U) 5 [pH] Normal NORMAL: 5.0-8.0 [facility] Comment on above: Performed By: #### 2 03386 #### [facility],[address] [place] [address] 34366 Protein Ql (U) 30 Abnormal NORMAL: NEGATIVE [facility] Comment on above: Performed By: #### 2 12053 #### [facility],[address] [place] [address] 90123 Rbc 20-25 Normal 0-3/hpf [facility] Comment on above: Performed By: #### 2 84590 #### [facility],[address] [place] [address] 40752 Sp [place] 1.025 Normal NORMAL: 1.010-1.030 [facility] Comment on above: Performed By: #### 2 44643 #### [facility],[address] [place] [address] 64304 Specimen Type UNSPECIFIED Normal [facility] Comment on above: Performed By: #### 2 85445 #### [facility],[address] [place], [place] [address] Urinalysis dipstick W Reflex Microscopic panel (U) SEE BELOW Normal [facility] Comment on above: Result Comment: MICR OSCOPIC Performed By: #### 2 76862 #### [facility],[address] [place] [address] 48132 Urobilinog NORM Normal NORMAL: NORMAL [facility] Comment on above: Performed By: #### 2 02319 #### [facility],[address] [place] [address] 64438 Wbc NONE Normal 0-5/hpf [facility] Comment on above: Performed By: #### 2 63481 #### [facility],[address] [place] [address] 53282 Yeast NONE Normal [facility] Comment on above: Performed By: #### 2 55154 #### [facility],[address] [place] [address] 34222 Coronavirus 2019on 0 COVID 19 Source STATISTICAL PROGRAMMER Normal [facility] Comment on above: Result Comment: Naso pharyngeal Swab Called to and read back by: Brad Sexton Corrected on 04/20 AT 0459: Previously reported as STATISTICAL PROGRAMMER [facility]AB [facility] 04/20/20 0449 [place] Zuleta Corrected on 04/20 AT 0459: Previously reported as STATISTICAL PROGRAMMER SWAB Performed By: #### C OVID #### [facility] [address] [place], [place] [address] COVID 19 Result STATISTICAL PROGRAMMER Abnormal Negative for COVID19 (SARS CoV2) by PCR. [facility] Comment on above: Result Comment: Posi tive for This test was developed and its performance characteristics determined by [facility] [place]. This test has been authorized by [facility] under an Emergency Use Authorization (EUA). This test has been validated in accordance with the FDA's Guidance Document "Policy for Diagnostics Testing in Laboratories Certified to Perform High Complexity Testing under CLIA prior to Emergency use Authorization for Coronavirus Disease 2019 during the Public Health Emergency" issued on August 20, 2019. COVID19 (SARS This test was developed and its performance characteristics determined by [facility] [place]. This test has been authorized by FDA under an Emergency Use Authorization (EUA). This test has been validated in accordance with the FDA's Guidance Document "Policy for Diagnostics Testing in Laboratories Certified to Perform High Complexity Testing under CLIA prior to Emergency use Authorization for Coronavirus Disease 2019 during the Public Health Emergency" issued on August 20, 2019. CoV2) by This test was developed and its performance characteristics determined by [facility] [place]. This test has been authorized by FDA under an Emergency Use Authorization (EUA). This test has been validated in accordance with the FDA's Guidance Document "Policy for Diagnostics Testing in Laboratories Certified to Perform High Complexity Testing under CLIA prior to Emergency use Authorization for Coronavirus Disease 2019 during the Public Health Emergency" issued on August 20, 2019. PCR.(*) This test was developed and its performance characteristics determined by [facility] [place]. This test has been authorized by FDA under an Emergency Use Authorization (EUA). This test has been validated in accordance with the FDA's Guidance Document "Policy for Diagnostics Testing in Laboratories Certified to Perform High Complexity Testing under CLIA prior to Emergency use Authorization for Coronavirus Disease 2019 during the Public Health Emergency" issued on August 20, 2019. Performed By: #### C OVID #### [facility] [id number] [place] [id number] HR HOLTER MONITORon 05-04 24 HR HOLTER MONITOR IMPRESSIONS AND FINDINGS: Scanned 06-May-2019 The basic underlying rhythm is sinus with an average rate of 59 BPM, a minimum rate of 39 BPM and a maximum rate of 116 BPM. B radycardia was seen 53% of the scan. There were 21 isolated premature atrial complexes. There was one atrial run which consisted of three beats at a rate of 79 BPM occurring at 15:22 on 04-May-2019. There were no diary symptoms documented. Hookup Date: [id number] Hookup Time: [id number] Recording Duration: 16339 S Minimum Heart Rate: 39 BPM Minimum Heart Rate Date/Time: [id number] Maximum Heart Rate: 116 BPM Maximum Heart Rate Date/Time: [id number] Average Heart Rate: 59 BPM Longest RR: 1.664 S Longest RR DATE/TIME: [id number] QRS complexes: 85413 Ventricular Ectopics: 0 Ventricular Isolated Beats: 0 Ventricular Bigeminal Cycles: 0 Ventricular Couplets: 0 Ventricular Runs: 0 Ventricular Beats in Runs: 0 Supraventricular Ectopics: 24 Supraventricular Isolated Beats: 21 Supraventricular Couplets: 0 Supraventricular Runs: 1 Supraventricular Beats in Runs: 3 Longest Supraventricular Run Date/Time: 20190504 Fastest Supraventricular Run, Date/Time: 20190504 Overreading Physician: VALARIE WALDEN M.D. See Holter MUSE for ECG strips. Normal [facility] Vital Signs Date Time Vital Sign Value Performing Clinician Faci lity 02-12-2024 14:13-0400 Diastolic blood pressure 94 mm[Hg] Deisy Mcgee MD Work Phone: [facility] 02-12-2024 14:13-0400 Systolic blood pressure 146 mm[Hg] Deisy Mcgee MD Work Phone: [facility] 02-12-2024 14:07-0400 Body mass index (BMI) [Ratio] 27.09 kg/m2 Deisy Mcgee MD Work Phone: [facility] 02-12-2024 14:07-0400 Body weight 88.1 kg Deisy Mcgee MD Work Phone: [facility] 02-12-2024 14:07-0400 Heart rate 64 /min Deisy Mcgee MD Work Phone: [facility] 02-12-2024 14:07-0400 Respiratory rate 16 /min Deisy Mcgee MD Work Phone: [facility] 08-14-2023 08:57-0500 Body height 180.3 cm Deisy Mcgee MD Work Phone: [facility] 08-14-2023 08:57-0500 Body weight 87.54 kg Deisy Mcgee MD Work Phone: [facility] 08-14-2023 08:57-0500 Diastolic blood pressure 84 mm[Hg] Deisy Mcgee MD Work Phone: [facility] 08-14-2023 08:57-0500 Heart rate 64 /min Deisy Mcgee MD Work Phone: [facility] 08-14-2023 08:57-0500 Respiratory rate 16 /min Deisy Mcgee MD Work Phone: [facility] 08-14-2023 08:57-0500 Systolic blood pressure 122 mm[Hg] Deisy Mcgee MD Work Phone: [facility] 08-22-2022 13:24-0500 Body height 180.3 cm Deisy Mcgee MD Work Phone: [facility] 08-22-2022 13:24-0500 Body weight 88.63 kg Deisy Mcgee MD Work Phone: [facility] 08-22-2022 13:24-0500 Diastolic blood pressure 78 mm[Hg] Deisy Mcgee MD Work Phone: [facility] 08-22-2022 13:24-0500 Heart rate 60 /min Deisy Mcgee MD Work Phone: [facility] 08-22-2022 13:24-0500 Respiratory rate 12 /min Deisy Mcgee MD Work Phone: [facility] 08-22-2022 13:24-0500 Systolic blood pressure 130 mm[Hg] Deisy Mcgee MD Work Phone: [facility] Encounters Encounter Date Encounter Type Care Provider Facility Start: 04-14-2025 End: 04-14-2025 ambulatory OLY PENDLETON Facility:[facility] Start: 04-13-2025 End: 04-13-2025 ambulatory DEISY MCGEE Facility:[facility] Start: 04-10-2025 End: 04-10-2025 ambulatory DEISY MCGEE Facility:[facility] Start: 04-10-2025 Encounter for genera l adult medical examination without abnormal findings OLY PENDLETON [facility] Start: 04-03-2025 End: 04-03-2025 ambulatory DEISY MCGEE Facility:[facility] Start: 02-22-2025 End: 02-23-2025 Patient encounter status Deisy Mcgee MD Work Phone: [facility] Start: 02-22-2025 End: 02-23-2025 Telephone encounter Deisy Mcgee MD Work Phone: [address] [place] [address] Comment on above: Orders Start: 07-28-2024 End: 07-28-2024 MC Get Medical Advice Deisy Mcgee MD Work Phone: [facility] [place] Comment on above: Medication Refill Start: 03-24-2024 End: 03-24-2024 Refill Deisy Mcgee MD Work Phone: [facility] [place] Comment on above: Refill Request Medication Question (Lisinopril/Hydrochlorothiazide/) Start: 02-12-2024 End: 02-12-2024 Patient encounter procedure Deisy Mcgee MD Work Phone: [facility] [place] Comment on above: Essential hypertensi on, benign (Primary Dx); Impaired fasting glucose; Hyperlipidemia LDL goal <100; Screening for depression Start: 08-14-2023 End: 08-14-2023 Patient encounter procedure Deisy Mcgee MD Work Phone: [facility] [place] Comment on above: Wellness examination (Primary Dx); Essential hypertension, benign; Impaired fasting glucose; Hyperlipidemia LDL goal <100; Need for vaccination Start: 08-14-2023 End: 08-14-2023 Patient encounter status Deisy Mcgee MD Work Phone: [facility] Start: 08-06-2023 ambulatory Deisy medeiros MD Work Phone: Family [facility] [place] Comment on above: Blood Work Start: 04-06-2023 ambulatory Deisy medeiros MD Work Phone: [facility] [place] Comment on above: Cough Medicine [facility] Start: 08-22-2022 End: 08-22-2022 Patient encounter procedure Deisy Mcgee MD Work Phone: Family [facility] [place] Comment on above: Wellness examination (Primary Dx); Essential hypertension, benign; Hyperlipidemia LDL goal <100; Impaired fasting glucose Start: 08-22-2022 End: 08-22-2022 Patient encounter status Deisy Mcgee MD Work Phone: [facility] [place] Start: 07-18-2022 Telephone encounter Deisy hill MD Work Phone: [facility] [place] Comment on above: Orders Start: 06-04-2022 ambulatory Deisy medeiros MD Work Phone: [facility] [place] Comment on above: Ongoing Cough Issue Start: 05-31-2022 End: 05-31-2022 ambulatory Deisy Mcgee MD Work Phone: [facility] [place] Comment on above: Acute cough (Primary Dx); COVID-19 Start: 05-31-2022 End: 05-31-2022 Telemedicine consultation with patient Deisy Mcgee MD Work Phone: [facility] [place] Start: 05-26-2022 ambulatory Deisy medeiros MD Work Phone: [facility] [place] Comment on above: Cough Medicine Start: 09-11-2021 End: 09-11-[address] Deisy Mcgee Work Phone: [facility]/Neurology Start: 09-11-2021 Non-patient / Non-visit Dr. Dulce Mcgee Work Phone: [facility] Start: 09-05-2021 End: 09-05-2021 Emergency department patient visit DR JAMAL ADI [facility] Procedures Date Procedure Procedure Detail Performing Clinician Start: 02-12-2024 Adult depression scr eening assessment Deisy Mcgee MD Work Phone: Start: 02-05-2024 Lipid 1996 panel - S constantino or Plasma Deisy Mcgee MD Work Phone: Start: 08-14-2023 [employer] COVI D-19 VACCINE (2022- SEASON) AGE 12+ YR Deisy Mcgee MD Work Phone: Start: 08-11-2023 Lipid Pacheco panel - S constantino or Plasma Deisy Mcgee MD Work Phone: Start: 08-12-2022 Lipid 1996 panel - S constantino or Plasma Deisy Mcgee MD Work Phone: Start: 09-05-[address] JAMAL CLARK Comment on above: Result Comment: URIN ALYSIS Performed By: #### [id number] #### [facility],[address] [place] [address] Start: 08-24-2015 Colonoscopy Deisy rocha MD Work Phone: Plan of Treatment Date Care Activity Detail Author Start: 02-18-2040 RSV Vaccine (1 - 1-d ose 75+ series) RSV Vaccine (1 - 1-dose 75+ series) [facility] Start: 2030 PNEUMOCOCCAL (3 - PPSV23 if available, else PCV20) PNEUMOCOCCAL (3 - PPSV23 if available, else PCV20) [facility] Start: 2030 Pneumococcal vaccination [facility] Start: 02-04-2029 Lipid panel Lipid Screening [facility] Start: 08-11-2028 Lipid panel Lipid Screening [facility] Start: 08-12-2027 Lipid 1996 panel - Serum or Plasma Lipid Screening [facility] Start: 08-12-2027 Lipid panel Lipid Screening [facility] Start: 08-12-2027 LIPID SCREEN LIPID SCREEN [facility] Start: 08-12-2027 PROSTATE CANCER SCREENING DISCUSSION PROSTATE CANCER SCREENING DISCUSSION [facility] Start: 08-12-2027 Prostate specific antigen measurement Prostate Cancer Screening Discussion [facility] Start: 07-16-2027 Urine microalbumin profile [facility] Start: 02-04-2027 Diabetes Screening Diabetes Screenin g [facility] Start: 08-23-2026 LIPID SCREEN LIPID SCREEN [facility] Start: 08-23-2026 PROSTATE CANCER SCREENING DISCUSSION PROSTATE CANCER SCREENING DISCUSSION [facility] Start: 08-11-2026 Diabetes Screening Diabetes Screenin g [facility] Start: 08-23-2025 Colonoscopy COLONOSCOPY [facility] Start: 08-23-2025 COLORECTAL CANCER SCREENING COLORECTAL CANCER SCREENING [facility] Start: 08-23-2025 Screening for malign ant neoplasm of colon [facility] Start: 08-12-2025 DIABETES SCREEN DIABETES SCREEN [facility] Start: 08-12-2025 Diabetes Screening Diabetes Screenin g [facility] Start: 04-14-2025 End: 04-14-2025 Patient encounter procedure 04/14/2025 2:00 PM EDT Office Visit [facility] [place] [address] [place] [id number] Oly Pendleton MD [address] [place] [id number] physical [facility] [place] Comment on above: physical Start: 02-23-2025 End: 05-25-2025 CBC W Auto Differential panel - Blood COMPLETE BLOOD COUNT AND DIFFERENTIAL Lab Routine Essential hypertension, benign Expected: 02/23/2025, Expires: 05/25/2025 [facility] Comment on above: Expected: 02/23/2025 , Expires: 05/25/2025 Start: 02-23-2025 End: 05-25-2025 Comprehensive metabolic 2000 panel - Serum or Plasma COMPREHENSIVE METABOLIC PANEL Lab Routine Essential hypertension, benign Hyperlipidemia LDL goal <100 Expected: 02/23/2025, Expires: 05/25/2025 [facility] Comment on above: Expected: 02/23/2025 , Expires: 05/25/2025 Start: 02-23-2025 End: 05-25-2025 Hemoglobin A1c in Blood HEMOGLOBIN A1C Lab Routine Impaired fasting glucose Expected: 02/23/2025, Expires: 05/25/2025 [facility] Comment on above: Expected: 02/23/2025 , Expires: 05/25/2025 Start: 02-23-2025 End: 05-25-2025 Lipid 1996 panel - Serum or Plasma LIPID PANEL, FASTING Lab Routine Hyperlipidemia LDL goal <100 Expected: 02/23/2025, Expires: 05/25/2025 [facility] Work Phone: Comment on above: Expected: 02/23/2025 , Expires: 05/25/2025 Start: 02-23-2025 End: 05-25-2025 PSA/PROSTATE SPECIFIC ANTIGEN SCREENING PSA/PROSTATE SPECIFIC ANTIGEN SCREENING Lab Routine Wellness examination Expected: 02/23/2025, Expires: 05/25/2025 [facility] Comment on above: Expected: 02/23/2025 , Expires: 05/25/2025 Start: 02-20-2025 Influenza vaccination Influenza Vacc ine (#1) [facility] Start: 02-11-2025 Annual PCP Team Guide [employer] juan daniel Disease Visit Annual PCP Team Chronic Disease Visit [facility] Start: 02-11-2025 Depression Screening Depression Scre ening [facility] Start: 08-23-2024 DIABETES SCREEN DIABETES SCREEN [facility] Start: 08-19-2024 End: 08-19-2024 Patient encounter procedure 08/19/2024 9:00 AM EST Office Visit Family [facility] [address] [facility] [place] [phone] Deisy Mcgee MD [address] [facility] [place] [id number] 6 mo f/u Family [facility] Comment on above: 6 mo f/u Start: 08-14-2024 Annual PCP Team Guide [employer] juan daniel Disease Visit Annual PCP Team Chronic Disease Visit [facility] Start: 08-14-2024 End: 11-13-2024 Comprehensive metabolic 2000 panel - Serum or Plasma COMPREHENSIVE METABOLIC PANEL Lab Routine Essential hypertension, benign Impaired fasting glucose Hyperlipidemia LDL goal <100 Expected: 08/14/2024 (Approximate), Expires: 11/13/2024 [facility] Work Phone: Comment on above: Expected: 08/14/2024 (Approximate), Expires: 11/13/2024 Start: 08-14-2024 End: 11-13-2024 Hemoglobin A1c in Blood HEMOGLOBIN A1C Lab Routine Impaired fasting glucose Expected: 08/14/2024 (Approximate), Expires: 11/13/2024 [facility] Comment on above: Expected: 08/14/2024 (Approximate), Expires: 11/13/2024 Start: 08-14-2024 End: 11-13-2024 Lipid 1996 panel - Serum or Plasma LIPID PANEL BASIC Lab Routine Essential hypertension, benign Impaired fasting glucose Hyperlipidemia LDL goal <100 Expected: 08/14/2024 (Approximate), Expires: 11/13/2024 [facility] Comment on above: Expected: 08/14/2024 (Approximate), Expires: 11/13/2024 Start: 02-21-2024 Covid-19 Vaccine () Covid-19 Vaccine () [facility] Start: 02-21-2024 Influenza vaccination Influenza Vacc ine (#1) [facility] Start: 02-12-2024 End: 05-13-2024 Comprehensive metabolic 2000 panel - Serum or Plasma COMP METABOLIC PANEL Lab Routine Essential hypertension, benign Impaired fasting glucose Hyperlipidemia LDL goal <100 Expected: 02/12/2024 (Approximate), Expires: 05/13/2024 [facility] Work Phone: Comment on above: Expected: 02/12/2024 (Approximate), Expires: 05/13/2024 Start: 02-12-2024 End: 05-13-2024 Hemoglobin A1c in Blood HGB A1C Lab Routine Impaired fasting glucose Expected: 02/12/2024 (Approximate), Expires: 05/13/2024 [facility] Work Phone: Comment on above: Expected: 02/12/2024 (Approximate), Expires: 05/13/2024 Start: 02-12-2024 End: 05-13-2024 Lipid 1996 panel - Serum or Plasma LIPID PANEL BASIC Lab Routine Essential hypertension, benign Impaired fasting glucose Hyperlipidemia LDL goal <100 Expected: 02/12/2024 (Approximate), Expires: 05/13/2024 [facility] Work Phone: Comment on above: Expected: 02/12/2024 (Approximate), Expires: 05/13/2024 Start: 08-23-2023 ANNUAL PCP TEAM LIQUEFIED PETROLEUM GASFITTER JUAN DANIEL DISEASE VISIT ANNUAL PCP TEAM CHRONIC DISEASE VISIT [facility] Start: 08-06-2023 End: 11-05-2023 CBC panel - Blood by Automated count CBC Lab Routine Hyperlipidemia LDL goal <100 Impaired fasting glucose Essential hypertension, benign Expected: 08/06/2023 (Approximate), Expires: 11/05/2023 [facility] Work Phone: Comment on above: Expected: 08/06/2023 (Approximate), Expires: 11/05/2023 Start: 08-06-2023 End: 11-05-2023 Comprehensive metabolic 2000 panel - Serum or Plasma COMP METABOLIC PANEL Lab Routine Essential hypertension, benign Expected: 08/06/2023 (Approximate), Expires: 11/05/2023 [facility] Work Phone: Comment on above: Expected: 08/06/2023 (Approximate), Expires: 11/05/2023 Start: 08-06-2023 End: 11-05-2023 Hemoglobin A1c in Blood HGB A1C Lab Routine Impaired fasting glucose Expected: 08/06/2023 (Approximate), Expires: 11/05/2023 [facility] Work Phone: Comment on above: Expected: 08/06/2023 (Approximate), Expires: 11/05/2023 Start: 08-06-2023 End: 11-05-2023 Lipid 1996 panel - Serum or Plasma LIPID PANEL BASIC Lab Routine Hyperlipidemia LDL goal <100 Impaired fasting glucose Essential hypertension, benign Expected: 08/06/2023 (Approximate), Expires: 11/05/2023 [facility] Work Phone: Comment on above: Expected: 08/06/2023 (Approximate), Expires: 11/05/2023 Start: 06-22-2023 Depression Assessment Depression Ass essment [facility] Start: 05-31-2023 ANNUAL PCP TEAM LIQUEFIED PETROLE[employer] GASFITTER JUAN DANIEL DISEASE VISIT ANNUAL PCP TEAM CHRONIC DISEASE VISIT [facility] Start: 02-20-2023 Covid-19 Vaccine ( season) Covid-19 Vaccine ( season) [facility] Start: 02-20-2023 Influenza vaccination Influenza Vacc ine (#1) [facility] Start: 08-03-2022 ANNUAL PCP TEAM LIQUEFIED PETROLEUM GASFITTER JUAN DNAIEL DISEASE VISIT ANNUAL PCP TEAM CHRONIC DISEASE VISIT [facility] Start: 07-18-2022 End: 09-17-2022 Prostate specific Ag [Mass/volume] in Serum or Plasma PSA/PROSTSPECAG DIAG Lab Routine Screening for prostate cancer Expected: 07/18/2022, Expires: 09/17/2022 [facility] Work Phone: Comment on above: Expected: 07/18/2022 , Expires: 09/17/2022 Start: 07-16-2022 Pneumococcal Vaccine : 50+ (3 of 3 - PCV20 or PCV21) Pneumococcal Vaccine: 50+ (3 of 3 - PCV20 or PCV21) [facility] Start: 06-22-2022 DEPRESSION ASSESSMENT DEPRESSION ASS ESSMENT [facility] Start: 02-20-2022 Influenza vaccination INFLUENZA (#1) [facility] Start: 06-22-2021 DEPRESSION ASSESSMENT DEPRESSION ASS ESSMENT [facility] Start: 06-14-2021 COVID-19 VACCINE (4 - Booster for Pfizer series) COVID-19 VACCINE (4 - Booster for Pfizer series) [facility] Start: 2015 SHINGRIX VACCINE (1 of 2) SHINGRIX VACCINE (1 of 2) [facility] Start: 2010 COLOGUARD (FIT-DNA) COLOGUARD (FIT-D NA) [facility] Start: [address] COLONOGRAPHY [facility] Start: 2010 FECAL OCCULT BLOOD FECAL OCCULT BLOO D [facility] Start: 2010 Screening for malign ant neoplasm of colon [facility] Start: [address] [facility] Start: 04-01-2005 HEPATITIS B (2 of 3 - 19+ 3-dose series) HEPATITIS B (2 of 3 - 19+ 3-dose series) [facility] Start: 04-01-2005 Hepatitis B Vaccine (2 of 3 - 19+ 3-dose series) Hepatitis B Vaccine (2 of 3 - 19+ 3-dose series) [facility] Start: 1983 BP CONTROLLED (<130/80) BP CONTROLLE D (<130/80) [facility] Immunizations Immunization Date Immunization Notes Care Provider Fa cility 08-14-2023 COVID-19 vaccine, ag e 12+ yr, season (PFIZER-[employer]) Deisy Mcgee MD Work Phone: [facility] 03-31-2023 influenza virus vacc ine, unspecified formulation Deisy Mcgee MD Work Phone: [facility] 01-01-2023 zoster vaccine recombinant Deisy Mcgee MD Work Phone: [facility] 08-26-2022 zoster vaccine recombinant Deisy Mcgee MD Work Phone: [facility] 05-01-2022 influenza, seasonal, injectable Deisy Mcgee MD Work Phone: [facility] 05-01-2022 influenza virus vacc ine, unspecified formulation Deisy Mcgee MD Work Phone: [facility] 07-16-2017 pneumococcal polysaccharide vaccine, 23 valent Deisy Mcgee MD Work Phone: [facility] 07-16-2017 tetanus toxoid, redu dat diphtheria toxoid, and acellular pertussis vaccine, adsorbed Deisy Mcgee MD Work Phone: [facility] 05-04-2017 influenza, seasonal, injectable Deisy Mcgee MD Work Phone: [facility] 07-11-2016 pneumococcal conjuga te vaccine, 13 valent Deisy Mcgee MD Work Phone: [facility] 04-02-2013 influenza virus vacc ine, unspecified formulation Deisy Mcgee MD Work Phone: [facility] 03-04-2005 hepatitis B vaccine, adult dosage Deisy Mcgee MD Work Phone: [facility] 03-04-2005 TD(adult) unspecifie d formulation Deisy Mcgee MD Work Phone: [facility] 03-04-2005 tetanus and diphther ia toxoids, adsorbed, preservative free, for adult use (2 Lf of tetanus toxoid and 2 Lf of diphtheria toxoid) Deisy Mcgee MD Work Phone: [facility] 03-04-2005 hepatitis B vaccine, unspecified formulation Deisy Mcgee MD Work Phone: [facility] Payers Date Payer Category Payer Private Health Insurance [employer] [id number] 2021 Unknown [employer] PPO [id number] 2021-Present [phone] [address] [place] [id number] PPO [id number] 2021 Unknown [id number] 1965 Unknown [id number] Self-pay SELF PAY INSURANCE [id number] Social History Date Type Detail Facility Start: 04-15-2019 Tobacco smoking status MDIS Unknown if ever smoked [facility] Work Phone: Start: 04-15-2019 Spouse/ Significant Other [facility] Work Phone: Start: 1965 Sex Assigned At Male [facility] Start: 07-16-2017 Tobacco smoking status NHIS Ex-smoker [facility] History of tobacco use Current smoker [facility] History of tobacco use Pipe Smoker [facility] History of tobacco use Cigar Smoker [facility] Start: 07-16-2017 End: 08-22-2022 Tobacco use and exposure Smokeless tobacco non-user [facility] Start: 01-26-2022 End: 02-12-2024 Alcohol intake Current drinker of alcohol (finding) [facility] Start: 07-19-2020 End: 05-31-2022 History SDOH Alcohol Frequency 2 [facility] Start: 07-19-2020 End: 05-31-2022 History SDOH Alcohol Std Drinks 1 [facility] Start: 07-19-2020 End: 05-31-2022 History SDOH Social Connections Phone 3 [facility] Start: 07-19-2020 End: 05-31-2022 History SDOH Physical Activity MPS 5 [facility] Start: 07-18-2019 Education 12 [facility] Start: 08-22-2022 Tobacco smoking status NHIS Occasional tobacco smoker [facility] Start: 08-22-2022 Tobacco Comment Occasionally, light tobacco smoker [facility] Start: 05-31-2022 End: 08-12-2023 History of Social function [facility] Start: 05-31-2022 End: 08-12-2023 Social connection and isolation panel [facility] Do you belong to any clubs or organizations such as catholic groups, unions, fraternal or athletic groups, or school groups? Yes [facility] Are you now , , , , never or living with a partner? [facility] How often to you hav e a drink containing alcohol? 2-4 times a month [facility] How many standard dr inks containing alcohol do you have on a typical day? 1 or 2 [facility] How often do you hav e 6 or more drinks on 1 occasion? Never [facility] Start: 05-23-2012 How hard is it for you to pay for the very basics like food, housing, medical care, and heating Not hard at all [facility] Do you feel stress - tense, restless, nervous, or anxious, or unable to sleep at night because your mind is troubled all the time - these days [OSQ] Only a little [facility] (I/We) worried joshua er (my/our) food would run out before (I/we) got money to buy more. Never true [facility] In the past 12 month s, was there a time when you were not able to pay the mortgage or rent on time? No [facility] Start: 07-24-2021 Gender identity Identifies as male gender (finding) [facility] Start: 07-24-2021 Sexual orientation Choose not to disclose [facility] Start: 07-24-2021 Sexual orientation Heterosexual (finding) [facility] Functional Status Date Assessment Result Facility 09-08-2014 Are you deaf, or do you have serious difficulty hearing No 09/08/2014 2:17 PM EDT Kathy Baird LPN No [facility] 09-08-2014 Are you blind, or do you have serious difficulty seeing, even when wearing glasses No 09/08/2014 2:17 PM Kathy Moses LPN No [facility] 09-08-2014 Do you have serious difficulty walking or climbing stairs No 09/08/2014 2:17 PM Kathy Moses LPN No [facility] 09-08-2014 Do you have difficul ty dressing or bathing No 09/08/2014 2:17 PM EDT Kathy Baird LPN No [facility] 09-08-2014 Because of a physica l, mental, or emotional condition, do you have difficulty doing errands alone such as visiting a physician's office or shopping No 09/08/2014 2:17 PM EDT Kathy Baird LPN No [facility] Mental Status Date Assessment Result Facility 09-08-2014 Because of a physica l, mental, or emotional condition, do you have serious difficulty concentrating, remembering, or making decisions No 09/08/2014 2:17 PM EDT Kathy Baird LPN No [facility] Clinical Notes 07-12-2016 to 04-14-2025 Telephone Encounter - Frannie Payton MA - 02/23/2025 10:12 AM EDTTelephone Encounter - Frannie Payton MA - 02/23/2025 10:12 AM EDTTelephone Encounter - Marlee Khan - 03/24/2024 1:45 PM EDT Note Date & Type Note Facility 04-14-2025 Note HNO ID: [id number] Author: OLY PENDLETON MD Service: ? Author Type: Physician Type: Progress Notes Filed: 04/16/2025 11:08 Note Text: Family Medicine OUTPATIENT VISIT April 14, 2025 CC: HLD FU HPI: 60 year old male patient with a history of Neuropathy HLD last LDL 81 on atorvastatin 10 HTN on lisinopril HCTZ Anxiety Prediabetes A1c 5.7 A flutter on eliquis, metoprol Cigar once a week. Here to follow up echo and a flutter. Labs on 04/10 CBC unremarkable CMP grossly wnl LDL 81 PSA wnl, TSH normal Stable prediabetes He began to have exercise intolerance and fatigue on March 25, and had hypotension. Increased fluid intake. Hypotension resolved but then following week this event reoccured. He had appt with Dr Gee on and ddx with A flutter on ECG. Started on metoprolol 25mg PO for rate control and eliquis 5. Since last appt, he does feel intermittent palpitations. The 10-year ASCVD risk score (Roselyn BOWENS, et al., 2019) is: 9% Values used to calculate the score: Age: 60 years Clinically relevant sex: Male Is Non- : No Diabetic: No Tobacco smoker: Yes Systolic Blood Pressure: 116 mmHg Is BP treated: Yes HDL Cholesterol: 68 mg/dL Total Cholesterol: 162 mg/dL Review of Systems PAIN ASSESSMENT: Negative for pain, history of chronic pain, or current treatment for a chronic pain condition. GENERAL: No weight loss, or fevers HEENT: Negative for frequent or significant headaches RESPIRATORY: Negative for cough, wheezing, shortness of breath CARDIOVASCULAR: Negative for chest pain, PND or orthopnea. Palpitations GI: No nausea, vomiting, or diarrhea or abdominal pain. No RI bleeding or melana : No history of dysuria, frequency, urgency, or change in urine appearance NEURO: No history of headaches, numbness, weakness, or changes to vision or hearing Health maintenance: Pneumococcal Vaccine: 50+(3 of 3 - PCV20 or PCV21) due on 07/16/2022 Depression Screening due on 02/11/2025 Covid-19 Vaccine( season) due on 02/20/2025 Allergies: ALLERGIES Allergen Reactions Losartan Other: See Comments urinary difficulties Norvasc [Amlodipine* Other: See Comments urinary difficulty Medications: apixaban (ELIQUIS) 5 mg tab(s) Take 1 tablet by mouth two times a day. metoprolol succinate ER (TOPROL XL) 25 mg 24 hr tablet Take 1 tablet by mouth once daily. lisinopril-hydroCHLOROthiazide (ZESTORETIC) 20-12.5 mg per tablet Take 1 tablet by mouth every morning. atorvastatin (LIPITOR) 10 mg tablet Take 1 tablet by mouth once daily. Past Medical History: PAST MEDICAL HISTORY Diagnosis Date Asthma (HCC) Mixed hyperlipidemia Hyperlipidemia Unspecified essential hypertension Essential hypertension Social History: SOCIAL HISTORY[1] Family History: Family History Problem Relation Age of Onset Heart Father HEART BYPASS Diabetes Father Diabetes Mother Diabetes Sister Hypertension Brother Hypertension Brother Hypertension Brother Hypertension Father Hypertension Mother BP 116/84 Pulse 75 Resp 6 Ht 176.5 cm (5' 9.5") Wt 87.7 kg (193 lb 6.4 oz) SpO2 99% BMI 28.15 kg/m? General: Awake, alert, not in acute distress RESIDENTIAL APPLIANCE REPAIR TECHNICIAN: Answering questions appropriately. No abnormal posturing or positioning. Speech is normal. Strength grossly intact. RESP: Clear lungs bilateral with good air entry, No increased work of breathing CVS: RRR, No murmur. Pulses 2+. GI: Abdomen is soft, non distended, non tender. No masses or hepatomegaly appreciated. Skin/Other: No rashes or lesions. HEENT: pupils equal Extremities: No peripheral edema, swelling or erythema of lower extremities. Labs: Reviewed the following: Pertinent labs as outlined above Latest Ref [facility] 04/10/2025 WBC 3.70 - 11.00 k/uL 3.66 (L) RBC 4.20 - 6.00 m/uL 5.09 Hemoglobin 13.0 - 17.0 g/dL 15.8 Hematocrit 39.0 - 51.0 % 47.5 MCV 80.0 - 100.0 fL 93.3 MCH 26.0 - 34.0 pg 31.0 MCHC 30.5 - 36.0 g/dL 33.3 RDW-CV 11.5 - 15.0 % 12.5 Platelet Count 150 - 400 k/uL 159 MPV 9.0 - 12.7 fL 10.4 Neut% % 56.0 Abs Neut (ANC) 1.45 - 7.50 k/uL 2.05 Lymph% % 28.4 Abs Lymph 1.00 - 4.00 k/uL 1.04 [place]% % 10.7 Abs [place] <0.87 k/uL 0.39 Eosin% % 3.0 Abs Eosin <0.46 k/uL 0.11 Baso% % 1.6 Abs Baso <0.11 k/uL 0.06 Immature Gran % % 0.3 IMMATURE GRANS (ABS) <0.10 k/uL <0.03 NRBC /100 WBC 0.0 Absolute nRBC <0.01 k/uL <0.01 DTYPE Auto Protein, Total 6.3 - 8.0 g/dL 6.8 Albumin 3.9 - 4.9 g/dL 4.4 Calcium 8.5 - 10.2 mg/dL 9.8 Bilirubin, Total 0.2 - 1.3 mg/dL 0.8 Alkaline Phosphatase 38 - 113 U/L 44 AST 14 - 40 U/L 15 ALT 10 - 54 U/L 15 Glucose 74 - 99 mg/dL 118 (H) BUN 9 - 24 mg/dL 19 Creatinine 0.73 - 1.22 mg/dL 1.08 Sodium 136 - 144 mmol/L 142 Potassium 3.7 - 5.1 mmol/L 4.6 Chloride 98 - 107 mmol/L 104 CO2 22 - 30 mmol/L 28 Anion Gap 8 - 15 mmol/L 10 eGFR >=60 mL/min/1.73m? 79 Cholesterol, Total <200 mg/ (more content not included)... [facility] 04-03-2025 Note HNO ID: [id number] Author: DEISY MCGEE MD Service: ? Author Type: Physician Type: Progress Notes Filed: 04/03/2025 15:50 Note Text: Chief Complaint Patient presents with: Blood Pressure: low Fatigue Immunizations: Flu vaccination HPI Recording using ambient Uplike software for draft documentation of the visit was discussed with the patient/authorized student services representative; all questions welcomed and answered. Patient/authorized student services representative agreed to proceed Maurilio is a 60-year-old male with a history of HTN, presenting with episodes of fatigue and lightheadedness during exercise, as well as concerns about fluctuating blood pressure readings. Maurilio reports that two weeks ago, during his routine 3-mile run, he experienced sudden fatigue and a sensation of heaviness in his legs approximately a quarter mile into the run, prompting him to stop and walk. Upon returning home, he measured his blood pressure, which was 93/62 mmHg, noting this as the lowest reading he had ever recorded. Suspecting dehydration, he increased his fluid intake, and the following day, his blood pressure was 125/81 mmHg. Due to the initial low reading, he refrained from taking his prescribed lisinopril for 2-3 days, fearing further reduction in blood pressure, but continued his cholesterol medication. During this period, he experienced intermittent lightheadedness, although hewas able to push mow his yard, which involves navigating a hill, without any symptoms. Over the next several days, his blood pressure readings returned to what he considered normal. Maurilio attempted to resume running the following Thursday but again experienced significant fatigue and heaviness in his legs after a quarter mile, leading him to stop and walk. He notes that while he has felt tired during runs before, he has always been able to push through, but this time he was unable to continue. He was able to walk 3 miles without issue. He denies any dyspnea, chest pain, or heaviness during these episodes, attributing the inability to continue running to a possible mental block. He reports no increase in day-to-day fatigue compared to the past few years, though he occasionally dozes off while watching TV in the evenings. Maurilio has been monitoring his pulse, noting readings of 72, 74, 80, 54, 57, and 56 bpm over the past week. Today, his pulse was 102 bpm after walking in the morning and 74 bpm at noon. He has resumed taking lisinopril for the past 3 days. He mentions feeling a difference in his heart rate since the initial low blood pressure episode, with occasional sensations prompting him to take deep breaths, which he can do without difficulty. These sensations are more noticeable when he is sitting on the couch in the evening and less so when he is busy at work. Past medical history, appointments, medications, allergies reviewed. Previous Medical History PAST MEDICAL HISTORY Diagnosis Date Asthma (HCC) Mixed hyperlipidemia Hyperlipidemia Unspecified essential hypertension Essential hypertension Previous Surgical History PAST SURGICAL HISTORY Procedure Laterality Date COLONOSCOPY FLX DX W/COLLJ SPEC WHEN PFRMD 08/24/2015 LITHOTRIPSY XTRCORP SHOCK WAVE N/A 09/05/2021 Family History FAMILY HISTORY Problem Relation Age of Onset Heart Father HEART BYPASS Diabetes Father Diabetes Mother Diabetes Sister Hypertension Brother Hypertension Brother Hypertension Brother Hypertension Father Hypertension Mother Patient Allergies ALLERGIES Allergen Reactions Losartan Other: See Comments urinary difficulties Norvasc [Amlodipine* Other: See Comments urinary difficulty Current Medications Current Outpatient Medications on File Prior to Visit Medication Sig lisinopril-hydroCHLOROthiazide (ZESTORETIC) 20-12.5 mg per tablet Take 1 tablet by mouth every morning. atorvastatin (LIPITOR) 10 mg tablet Take 1 tablet by mouth once daily. No current facility-administered medications on file prior to visit. Social History SOCIAL HISTORY[1] EXAM: BP 130/90 Pulse 102 Resp 16 Wt 89.6 kg (197 lb 8.5 oz) SpO2 100% BMI 27.55 kg/m? General Appearance: Well appearing, alert, in no acute distress, well-hydrated, well nourished.. Lungs: Lungs clear to auscultation. No wheezing, rhonchi, rales.. Heart: mostly regular, occ irregulra beat noted. Health Maintenance List Pneumococcal Vaccine: 50+(3 of 3 - PCV20 or PCV21) due on 07/16/2022 Annual PCP Team Chronic Disease Visit due on 02/11/2025 Depression Screening due on 02/11/2025 Influenza Vaccine(1) due on 02/20/2025 Covid-19 Vaccine( season) due on 02/20/2025 Colorectal Cancer Screening due on 08/23/2025 Diabetes Screening due on 02/04/2027 DTaP,Tdap,Td Vaccine(2 - Td or Tdap) due on 07/16/2027 Prostate Cancer Screening Discussion due on 08/12/2027 Lipid Screening due on 02/04/2029 RSV Vaccine(1 - 1-dose 75+ series) due on 02/17 (more content not included)... [facility] 02-23-2025 Telephone encounter Note Pt notified and instructed to be fasting for the labs. Frannie Payton MA [facility] 02-23-2025 Miscellaneous Notes Pt notified and instructed to be fasting for the labs. Frannie Payton MA Orders filed. Jet Morin APRN.CNP Patient is requesting lab orders for his upcoming physical documented in this encounter [facility] 02-23-2025 Telephone encounter Note Orders filed. Jet Morin APRN.CNP [facility] 02-22-2025 Telephone encounter Note Patient is requesting lab orders for his upcoming physical [facility] 07-28-2024 Telephone encounter Note The following approved medication requests have been transmitted electronically. Requested Prescriptions Signed Prescriptions Disp Refills atorvastatin (LIPITOR) 10 mg tablet 30 tablet 11 Sig: Take 1 tablet by mouth once daily. Elizabeth Pineda APRN.CNP [facility] 07-28-2024 Miscellaneous Notes The following approved medication requests have been transmitted electronically. Requested Prescriptions Signed Prescriptions Disp Refills atorvastatin (LIPITOR) 10 mg tablet 30 tablet 11 Sig: Take 1 tablet by mouth once daily. Elizabeth Pineda APRN.CNP documented in this encounter [facility] 03-24-2024 Telephone encounter Note Pt notified and voiced understanding. Frannie Payton MA [facility] 03-24-2024 Miscellaneous Notes Pt notified and voiced understanding. Frannie Payton MA Rx done for the combination pill Deisy Mcgee MD Patient calling with a question. He used to be prescribed the Lisinopril with the Hydrochlorothiazide. They have been prescribed separately lately, and he is asking if he can be prescribed the duo so he does not have to take the 2 separate pills. Please advise if this will be changed or not. [phone] documented in this encounter [facility] 03-24-2024 Telephone encounter Note Rx done for the combination pill Deisy Mcgee MD [facility] 03-24-2024 Telephone encounter Note Patient notified of a year of refills on medication, verbalizes understanding of instructions. Brenda Castaneda LPN [facility] 03-24-2024 Miscellaneous Notes Patient notified of a year of refills on medication, verbalizes understanding of instructions. Brenda Castaneda LPN Patient has only 2 left - please expedite Patient has been identified by name and date of : Yes, Patient phones for refill(s): Requested Prescriptions Pending Prescriptions Disp Refills atorvastatin (LIPITOR) 10 mg tablet 30 tablet 11 Sig: Take 1 tablet by mouth once daily. Date of last office visit in primary care: 02/12/2024 Date of next office visit in primary care: 08/19/2024 Please advise. Thank you. Marlee Khan. documented in this encounter [facility] 03-24-2024 Telephone encounter Note Patient calling with a question. He used to be prescribed the Lisinopril with the Hydrochlorothiazide. They have been prescribed separately lately, and he is asking if he can be prescribed the duo so he does not have to take the 2 separate pills. Please advise if this will be changed or not. [phone] [facility] 03-24-2024 Telephone encounter Note Patient has only 2 left - please expedite Patient has been identified by name and date of : Yes, Patient phones for refill(s): Requested Prescriptions Pending Prescriptions Disp Refills atorvastatin (LIPITOR) 10 mg tablet 30 tablet 11 Sig: Take 1 tablet by mouth once daily. Date of last office visit in primary care: 02/12/2024 Date of next office visit in primary care: 08/19/2024 Please advise. Thank you. Marlee Khan. [facility] 02-12-2024 History of Presen t illness Narrative Chief Complaint Patient presents with: F/U 6 Month HPI Fredy Hodges is a 58 year old male who presents here today for 6 month follow up. Pt here today for his routine follow up. Denies any stomach, bowel or urinary issues. Gets up once a night to urinate usually, occasionally twice depending on how much he drinks or eating too much fruit. Lipid/Glucose: Elevated glucose, currently on no medications. Has been exercising by running every Saturday morning 3 miles. Rides recumbent bike couple times per week. Does push ups through out the week; achieved his goal of 100 pushups at one time. Tries to watch diet. Was taking Lipitor 10 mg daily but was advised to stop for a few months to see if glucose was better. HTN: Checking BP at home occasionally. Readings in the 130/70-80. Taking Lisinopril 20 mg once daily. Was taking lisinopril-hctz. Denies any chest pains, dizziness, or SOB. HM - Declines depression, screening negative. Past medical history, appointments, medications, allergies reviewed. Previous Medical History PAST MEDICAL HISTORY No date: Asthma No date: Mixed hyperlipidemia Comment: Hyperlipidemia No date: Unspecified essential hypertension Comment: Essential hypertension Previous Surgical History PAST SURGICAL HISTORY 08/24/2015: COLONOSCOPY FLX DX W/COLLJ SPEC WHEN PFRMD 09/05/2021: LITHOTRIPSY XTRCORP SHOCK WAVE; N/A Family History FAMILY HISTORY Problem Relation Age of Onset Heart Father HEART BYPASS Diabetes Father Diabetes Mother Diabetes Sister Hypertension Brother Hypertension Brother Hypertension Brother Hypertension Father Hypertension Mother Patient Allergies ALLERGIES Allergen Reactions Losartan Other: See Comments urinary difficulties Norvasc [Amlodipine* Other: See Comments urinary difficulty Current Medications Current Outpatient Medications on File Prior to Visit Medication Sig lisinopril (ZESTRIL) 20 mg tablet Take 1 tablet by mouth once daily. No current facility-administered medications on file prior to visit. Social History Social History Tobacco Use Smoking status: Some Days Types: Pipe, Cigars Smokeless tobacco: Never Tobacco comments: Occasionally, light tobacco smoker Substance Use Topics Alcohol use: Yes Comment: occasionally Drug use: No EXAM: BP 146/94 Pulse 64 Resp 16 Wt 88.1 kg (194 lb 3.6 oz) BMI 27.09 kg/m General Appearance: Well appearing, alert, in no acute distress, well-hydrated, well nourished.. Skin: johnny keratosis on maylin breasts, fibroma left thigh. Lungs: Lungs clear to auscultation. No wheezing, rhonchi, rales.. Heart: RRR without murmur, gallop, or rubs. No ectopy. Health Maintenance List Depression Screening Never done BP Controlled (<130/80) Never done Hepatitis B Vaccine(2 of 3 - 19+ 3-dose series) due on 04/01/2005 Influenza Vaccine(1) due on 02/21/2024 Annual PCP Team Chronic Disease Visit due on 08/14/2024 Colorectal Cancer Screening due on 08/23/2025 Diabetes Screening due on 02/04/2027 DTaP,Tdap,Td Vaccine(2 - Td or Tdap) due on 07/16/2027 Prostate Cancer Screening Discussion due on 08/12/2027 Lipid Screening due on 02/04/2029 Pneumococcal Vaccine(3 of 3 - PPSV23 or PCV20) due on 2030 Hepatitis C Screening Completed HIV Screening Completed Shingrix Vaccine Completed Covid-19 Vaccine Completed Data reviewed Appointment on 02/05/2024 Component Date Value Protein, Total 02/05/2024 7.3 Albumin 02/05/2024 4.6 Calcium, Total 02/05/2024 9.7 Bilirubin, Total 02/05/2024 0.7 Alkaline Phosphatase 02/05/2024 59 AST 02/05/2024 17 ALT 02/05/2024 20 Glucose 02/05/2024 119 (H) BUN 02/05/2024 19 Creatinine 02/05/2024 1.00 Sodium 02/05/2024 139 Potassium 02/05/2024 4.7 Chloride 02/05/2024 103 CO2 02/05/2024 26 Anion Gap 02/05/2024 10 Estimated Glomerular Jax* 02/05/2024 87 Cholesterol, Total 02/05/2024 177 Triglyceride 02/05/2024 43 HDL Cholesterol 02/05/2024 80 Non HDL Cholesterol 02/05/2024 97 Fasting Time 02/05/2024 12 VLDL Cholesterol 02/05/2024 9 TC:HDL Ratio 02/05/2024 2.21 LDL Cholesterol 02/05/2024 88 LDL:HDL Ratio 02/05/2024 1.10 Hemoglobin A1C 02/05/2024 5.7 (H) Estimated Average Glucose 02/05/2024 117 ASSESSMENT/PLAN: 1. Essential hypertension, benign - ICD9: 401.1, ICD10: I10 (primary diagnosis) - Worsening control - Continue current medications - Recommend home blood pressure monitoring, to bring results to next visit - Recommend regular aerobic exercise - Check BP at home; call if remaining elevated and will add back HCTZ - COMPREHENSIVE METABOLIC PANEL - LIPID PANEL BASIC 2. Impaired fasting glucose - ICD9: 790.21, ICD10: R73.01 Lifestyle - COMPREHENSIVE METABOLIC PANEL - LIPID PANEL BASIC - HEMOGLOBIN A1C 3. Hyperlipidemia LDL goal <100 - ICD9: 272.4, ICD10: E78.5 - Controlled - Continue current medications - Counseled on healthy diet and regular exercise - ATORVASTATIN 10 MG TABLET - COMPREHENSIVE METABOLIC PANEL - LIPID PANEL BASIC 4. Screening for depression - ICD9: V79.0, ICD10: Z13.31 - DEPRESSION SCREENING Follow up in 6 months Medical Decision Making: Problems: Moderate: 2+ stable chronic illnesses Data: Unique test result(s) reviewed: 3+ Unique test(s) ordered: 3+ Risk: Moderate: Drug management Medical Decision Making Level: 4 - Moderate Deisy Mcgee MD documented in this encounter [facility] 08-14-2023 Instructions Tanya Mcgraw Ma - 08/14/2023 9:30 AM EST Stop Lipitor for a few months to see if this reduces your glucose. Will repeat labs. Will drop HCTZ from blood pressure regimen and take Lisinopril 20 mg once daily. Will follow up in 6 months. documented in this encounter [facility] 08-14-2023 History of Presen t illness Narrative Chief Complaint Patient presents with: Wellness HPI Fredy Hodges is a 58 year old male who presents here today for physical. Pt here today for a Wellness visit. Busy with work also serves on [employer] in [place]. 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 GI/Uro - Denies any stomach, bowel or urinary issues. Reports occasional nocturia depending on how much he drinks the night before. HTN: Checking BP at home occasionally, this am was 141/79. Notes BP varies, slightly on the higher side. Denies any chest pains, dizziness, or SOB. Taking Lisinopril-HCTZ 20-12.5 mg once daily. Discussed at previous visit weaning down off medication, would like to discuss this. Trying to work on diet and exercise to lose weight. Lipid/Glucose: Elevated glucose, currently on no medications. Has been exercising by running every Thursday morning 3 miles. Rides recumbent bike couple times per week. Does push ups through out the week. Goal was to do 100 push ups, made it to 97. Does more during the summer months. Walks with his . Push mows his lawn. Tries to watch diet. Taking Lipitor 10 mg daily. Tolerating well. Reports hx of nose bleeds, but since having Covid he hasn't this. HM - Declines depression (score 0). Agreeable to Covid vaccine. Past medical history, appointments, medications, allergies reviewed. Previous Medical History PAST MEDICAL HISTORY Diagnosis Date Asthma Mixed hyperlipidemia Hyperlipidemia Unspecified essential hypertension Essential hypertension Previous Surgical History PAST SURGICAL HISTORY Procedure Laterality Date COLONOSCOPY FLX DX W/COLLJ SPEC WHEN PFRMD 08/24/2015 LITHOTRIPSY XTRCORP SHOCK WAVE N/A 09/05/2021 Family History FAMILY HISTORY Problem Relation Age of Onset Heart Father HEART BYPASS Diabetes Father Diabetes Mother Diabetes Sister Hypertension Brother Hypertension Brother Hypertension Brother Hypertension Father Hypertension Mother Patient Allergies ALLERGIES Allergen Reactions Losartan Other: See Comments urinary difficulties Norvasc [Amlodipine* Other: See Comments urinary difficulty Current Medications Current Outpatient Medications on File Prior to Visit Medication Sig atorvastatin (LIPITOR) 10 mg tablet Take 1 tablet by mouth once daily. lisinopril-hydroCHLOROthiazide (ZESTORETIC) 20-12.5 mg per tablet Take 1 tablet by mouth once daily. No current facility-administered medications on file prior to visit. Social History Social History Tobacco Use Smoking status: Some Days Types: Pipe, Cigars Smokeless tobacco: Never Tobacco comments: Occasionally, light tobacco smoker Substance Use Topics Alcohol use: Yes Comment: occasionally Drug use: No EXAM: BP 122/84 (BP Site: Left Arm, BP Position: Sitting, BP Cuff Size: Regular Adult) Pulse 64 Resp 16 Ht 180.3 cm (5' 11") Wt 87.5 kg (193 lb) BMI 26.92 kg/m General Appearance: Well appearing, alert, in no acute distress, well-hydrated, well nourished.. Lungs: Lungs clear to auscultation. No wheezing, rhonchi, rales.. Heart: RRR without murmur, gallop, or rubs. No ectopy. Abdomen: Normal abdominal exam. Health Maintenance List BP Controlled (<130/80) Never done Hepatitis B Vaccine(2 of 3 - 19+ 3-dose series) due on 04/01/2005 Shingrix Vaccine(1 of 2) Never done Influenza Vaccine(1) due on 02/20/2023 Covid-19 Vaccine(5 - 2022- season) due on 02/20/2023 Depression Assessment due on 06/22/2023 Annual PCP Team Chronic Disease Visit due on 08/23/2023 Diabetes Screening due on 08/12/2025 Colorectal Cancer Screening due on 08/23/2025 DTaP,Tdap,Td Vaccine(2 - Td or Tdap) due on 07/16/2027 Lipid Screening due on 08/12/2027 Prostate Cancer Screening Discussion due on 08/12/2027 Pneumococcal Vaccine(3 of 3 - PPSV23 or PCV20) due on 2030 Hepatitis C Screening Completed HIV Screening Completed Data reviewed Appointment on 08/11/2023 Component Date Value Protein, Total 08/11/2023 6.7 Albumin 08/11/2023 4.3 Calcium, Total 08/11/2023 9.6 Bilirubin, Total 08/11/2023 0.6 Alkaline Phosphatase 08/11/2023 41 AST 08/11/2023 24 ALT 08/11/2023 23 Glucose 08/11/2023 114 (H) BUN 08/11/2023 20 Creatinine 08/11/2023 0.96 Sodium 08/11/2023 141 Potassium 08/11/2023 4.2 Chloride 08/11/2023 104 CO2 08/11/2023 28 Anion Gap 08/11/2023 9 Estimated Glomerular Jax* 08/11/2023 92 Hemoglobin A1C 08/11/2023 5.8 (H) Estimated Average Glucose 08/11/2023 120 Cholesterol, Total 08/11/2023 173 Triglyceride 08/11/2023 42 HDL Cholesterol 08/11/2023 73 Non HDL Cholesterol 08/11/2023 100 Fasting Time 08/11/2023 15 VLDL Cholesterol 08/11/2023 8 TC:HDL Ratio 08/11/2023 2.37 LDL Cholesterol 08/11/2023 92 LDL:HDL Ratio 08/11/2023 1.26 WBC 08/11/2023 4.52 RBC 08/11/2023 4.76 Hemoglobin 08/11/2023 14.5 Hematocrit 08/11/2023 43.8 MCV 08/11/2023 92.0 MCH 08/11/2023 30.5 MCHC 08/11/2023 33.1 RDW-CV 08/11/2023 12.2 Platelet Count 08/11/2023 149 (L) MPV 08/11/2023 10.2 Absolute nRBC 08/11/2023 <0.01 ASSESSMENT/PLAN: 1. Wellness examination - ICD9: V70.0, ICD10: Z00.00 (primary diagnosis) - Counseled on healthy diet and regular exercise - Discussed need for and benefit of weight loss. BMI 26.92 kg/(m^2) - Smoking cessation encouraged; discussed risks to health and quitting strategies. Patient is light tobacco/cigar smoker - Follow up for annual exam in one year 2. Essential hypertension, benign - ICD9: 401.1, ICD10: I10 - Controlled - Switch to Lisinopril 20 mg once daily - Recommend home blood pressure monitoring, to bring results to next visit - Encouraged sodium restriction, DASH or Mediterranean diet - Recommend regular aerobic exercise 3. Impaired fasting glucose - ICD9: 790.21, ICD10: R73.01 - Stable on labs - Continue watching diet and exercise - Monitor routine labs. 4. Hyperlipidemia LDL goal <100 - ICD9: 272.4, ICD10: E78.5 - Controlled - Go off Lipitor for a few months, to see if this is contributing to elevated glucose. - Check labs in a few months. - Counseled on healthy diet and regular exercise 5. Need for vaccination - ICD9: V05.9, ICD10: Z23 - Receive in office today. Follow up in 6 months with fasting labs. I agree with the Chief Complaint, ROS, and Past Histories independently gathered by the clinical systems support specialist and the remaining scribed note accurately describes my personal service to the patient. Deisy Mcgee MD The documentation for this note was completed by Tanya Mcgraw Ma acting as scribe for Deisy Mcgee MD. August 14, 2023 8:48 AM. Tanya Mcgraw Ma documented in this encounter [facility] 08-06-2023 Miscellaneous Notes See mychart message. Does pt need labs prior to appt? Looks like his last labs were done a year ago. Frannie Payton Ma documented in this encounter [facility] 04-06-2023 Miscellaneous Notes Please see pt message and advise. Tanya Mcgraw Ma documented in this encounter [facility] 08-22-2022 History of Presen t illness Narrative Chief Complaint Patient presents with: Wellness HPI Fredy Hodges is a 57 year old male who presents here today for a Wellness Exam. Pt here today for a Wellness Exam and feels good. Will occ smoke a cigar with a group of his buddies, but this is infrequent. GI/Uro - Denies any stomach, bowel or urinary issues. Gets up once nightly to urinate. Notes an episode of kidney stones last year, had lithotripsy he believes. No hx of this. Has increased his water intake since that time. HTN - Checks BP at home on occasion. BP this morning before taking medication and drinking coffee was in the 140/78. After he exercises and waits a little bit his BP is much lower, around 117/70's. Denies any chest pain, sob or dizziness. Has reported a dry cough in the past, but not bothersome. On current regimen of Lisinopril-HCTZ 20-12.5 mg once daily. Notes FHx of cardiac/cholesterol issues as well as MA at 57. Notes that his dad was over 100 lbs heavier then pt and ate more poorly. Lipids - Has been working hard on losing weight as well as exercising. Has reduced bread, rice, potatoes and pasta. Likes to eat vegetables and grill foods. Try to cut back on sweets. Increase water intake. Drinks diet pop maybe once a week, minimal alcohol consumption. Exercises by running a 5K Thursday morning, walking 4 miles 1-2 x per week and rides a recumbent bike 2-3 x per week for 60 minutes. Can do 80 pushups without stopping, working on getting up to 100. On current regimen of Lipitor 10 mg once daily, denies any issues with medication. Ear - At times feels like he has water in his ear or something is in his ear. Happens infrequently. Had a goal to get down to 190, which he was that yesterday on his home scale. Discussed with Dr. Keith in the past if he got his weight down he may be able to get off medication. Still has this in mind, but if not able then he won't. Had Covid 05/2022. Had lingering cough, that improved with Codeine Cough Syrup. HM - Declines depression. Discussed Shingles, may get this. Past medical history, appointments, medications, allergies reviewed. Previous Medical History PAST MEDICAL HISTORY Diagnosis Date Asthma Mixed hyperlipidemia Hyperlipidemia Unspecified essential hypertension Essential hypertension Previous Surgical History PAST SURGICAL HISTORY Procedure Laterality Date COLONOSCOPY FLX DX W/COLLJ SPEC WHEN PFRMD 08-24-15 Family History FAMILY HISTORY Problem Relation Age of Onset Heart Father HEART BYPASS Diabetes Father Diabetes Mother Diabetes Sister Hypertension Brother Hypertension Brother Hypertension Brother Hypertension Father Hypertension Mother Patient Allergies ALLERGIES Allergen Reactions Losartan Other: See Comments urinary difficulties Norvasc [Amlodipine* Other: See Comments urinary difficulty Current Medications Current Outpatient Medications on File Prior to Visit Medication Sig atorvastatin (LIPITOR) 10 mg tablet Take 1 tablet by mouth once daily. lisinopril-hydroCHLOROthiazide (PRINZIDE,ZESTORETIC) 20-12.5 mg per tablet Take 1 tablet by mouth once daily. predniSONE (DELTASONE) 20 mg tablet Take 2 tablets by mouth once daily. benzonatate (TESSALON PERLES) 100 mg capsule Take 1 capsule by mouth three times daily as needed for cough. No current facility-administered medications on file prior to visit. Social History Social History Tobacco Use Smoking status: Former Types: Pipe, Cigars Smokeless tobacco: Never Tobacco comments: occasionally Substance Use Topics Alcohol use: Yes Comment: occasionally Drug use: No EXAM: BP 130/78 (BP Site: Left Arm, BP Position: Sitting, BP Cuff Size: Regular Adult) Pulse 60 Resp 12 Ht 180.3 cm (5' 11") Wt 88.6 kg (195 lb 6.4 oz) BMI 27.25 kg/m General Appearance: Well appearing, alert, in no acute distress, well-hydrated, well nourished.. Lungs: Lungs clear to auscultation. No wheezing, rhonchi, rales.. Heart: RRR without murmur, gallop, or rubs. No ectopy.. Health Maintenance List BP CONTROLLED (<130/80) Never done HEPATITIS B(2 of 3 - 19+ 3-dose series) due on 04/01/2005 SHINGRIX VACCINE(1 of 2) Never done DEPRESSION ASSESSMENT due on 06/22/2022 ANNUAL PCP TEAM CHRONIC DISEASE VISIT due on 05/31/2023 DIABETES SCREEN due on 08/12/2025 COLORECTAL CANCER SCREENING due on 08/23/2025 DTAP,TDAP,TD(2 - Td or Tdap) due on 07/16/2027 LIPID SCREEN due on 08/12/2027 PROSTATE CANCER SCREENING DISCUSSION due on 08/12/2027 INFLUENZA Completed HEPATITIS C SCREENING Completed HIV SCREENING Completed COVID-19 VACCINE Completed Data reviewed Results Only on 08/12/2022 Component Date Value Hemoglobin A1C 08/12/2022 5.8 (A) Estimated Average Glucose 08/12/2022 120 Protein, Total 08/12/2022 7.0 Albumin 08/12/2022 4.4 Calcium, Total 08/12/2022 9.7 Bilirubin, Total 08/12/2022 0.5 Alkaline Phosphatase 08/12/2022 47 AST 08/12/2022 24 ALT 08/12/2022 27 Glucose 08/12/2022 109 (A) BUN 08/12/2022 19 Creatinine 08/12/2022 0.98 Sodium 08/12/2022 138 Potassium 08/12/2022 4.4 Chloride 08/12/2022 102 CO2 08/12/2022 27 Anion Gap 08/12/2022 9 Estimated Glomerular Jax* 08/12/2022 90 Cholesterol, Total 08/12/2022 185 Triglyceride 08/12/2022 50 HDL Cholesterol 08/12/2022 70 Non HDL Cholesterol 08/12/2022 115 Fasting Time 08/12/2022 16 VLDL Cholesterol 08/12/2022 10 TC:HDL Ratio 08/12/2022 2.64 LDL Cholesterol 08/12/2022 105 (A) LDL:HDL Ratio 08/12/2022 1.50 PSA 08/12/2022 0.57 ASSESSMENT/PLAN: 1. Wellness examination - ICD9: V70.0, ICD10: Z00.00 (primary diagnosis) - Counseled on healthy diet and regular exercise - Annually. 2. Essential hypertension, benign - ICD9: 401.1, ICD10: I10 - good control - Continue current medication regimen. - Recommended regular aerobic exercise. - Recommend home blood pressure monitoring, to bring results in on next visit - Goal of BP <130/80 - pt will update office via [facility] when ready to adjust BP medication. 3. Hyperlipidemia LDL goal <100 - ICD9: 272.4, ICD10: E78.5 - good control - Continue current medication. - Encouraged following a low fat, low cholesterol diet. - Discussed the benefits of regular aerobic exercise and weight loss. 4. Impaired fasting glucose - ICD9: 790.21, ICD10: R73.01 - Cont diet and exercise. - Controlled without medication. Follow up annually with labs. Will update the office if wanting to change his regimen. If BP remains well controlled would consider changing to lisinopril 10 mg daily only. I agree with the Chief Complaint, ROS, and Past Histories independently gathered by the clinical systems support specialist and the remaining scribed note accurately describes my personal service to the patient. Deisy Mcgee MD The documentation for this note was completed by Tanya Mcgraw Ma acting as scribe for Deisy Mcgee MD. August 22, 2022 1:53 PM. Tanya Mcgraw Ma documented in this encounter [facility] 07-18-2022 Miscellaneous Notes Pt called and is notified of providers message. Pt voices understanding. Clementine Juarez, RN Added a PSA to previously ordered CMP, Hgb A1c and Cholesterol panel. Jet Morin [email or web address] Patient calling to request an order for Labs Please advise. Patient is requesting a return call from our office. Date of next visit with PCP 08-22 documented in this encounter [facility] 05-31-2022 History of Presen t illness Narrative Chief Complaint Patient presents with: Cough: X 2 weeks HPI: This Team Access Model visit is a virtual/phone encounter. It required patient-provider interaction for the medical decision making as documented below. Patient was offered a virtual/telemedicine appointment in lieu of an office visit due to recommendations to reduce patient exposure to COVID-19. Patient is aware of limitations of performing the visit without a face to face visit in the office setting and agrees. Pt c/o cough for 2 weeks, was given Tessalon Perles 05/26/22 but states he only has 6 pills left and they do not help much. He denies any other sx, no head, chest, or sinus congestion, no fever, no SOB or wheezing. He has used codeine cough medicine in the past with good results has had a bad cold also. Past medical history, appointments, medications, allergies reviewed. Previous Medical History PAST MEDICAL HISTORY Diagnosis Date Asthma Mixed hyperlipidemia Hyperlipidemia Unspecified essential hypertension Essential hypertension Previous Surgical History PAST SURGICAL HISTORY Procedure Laterality Date COLONOSCOPY FLX DX W/COLLJ SPEC WHEN PFRMD 08-24-15 Family History FAMILY HISTORY Problem Relation Age of Onset Heart Father HEART BYPASS Diabetes Father Diabetes Mother Diabetes Sister Hypertension Brother Hypertension Brother Hypertension Brother Hypertension Father Hypertension Mother Patient Allergies ALLERGIES Allergen Reactions Losartan Other: See Comments urinary difficulties Norvasc [Amlodipine* Other: See Comments urinary difficulty Current Medications Current Outpatient Medications on File Prior to Visit Medication Sig benzonatate (TESSALON PERLES) 100 mg capsule Take 1 capsule by mouth three times daily as needed for cough. tamsulosin (FLOMAX) 0.4 mg Take 1 capsule by mouth daily at bedtime. atorvastatin (LIPITOR) 10 mg tablet Take 1 tablet by mouth once daily. lisinopril-hydroCHLOROthiazide (PRINZIDE,ZESTORETIC) 20-12.5 mg per tablet Take 1 tablet by mouth once daily. No current facility-administered medications on file prior to visit. Social History Social History Tobacco Use Smoking status: Former Types: Pipe, Cigars Smokeless tobacco: Never Tobacco comments: occasionally Substance Use Topics Alcohol use: Yes Comment: occasionally Drug use: No EXAM: There were no vitals taken for this visit. NAD Health Maintenance List BP CONTROLLED (<130/80) Never done HEPATITIS B(2 of 3 - 19+ 3-dose series) due on 04/01/2005 SHINGRIX VACCINE(1 of 2) Never done COVID-19 VACCINE(4 - Booster for Pfizer series) due on 06/14/2021 DEPRESSION ASSESSMENT Never done INFLUENZA(1) due on 02/20/2022 ANNUAL PCP TEAM CHRONIC DISEASE VISIT due on 08/03/2022 DIABETES SCREEN due on 08/23/2024 COLORECTAL CANCER SCREENING due on 08/23/2025 LIPID SCREEN due on 08/23/2026 PROSTATE CANCER SCREENING DISCUSSION due on 08/23/2026 DTAP,TDAP,TD(2 - Td or Tdap) due on 07/16/2027 HEPATITIS C SCREENING Completed HIV SCREENING Completed Data reviewed none ASSESSMENT/PLAN: 1. Acute cough - ICD9: 786.2, ICD10: R05.1 (primary diagnosis) OK for codeine cough syrup for symptoms control - CODEINE 10 MG-GUAIFENESIN 100 MG/5 ML ORAL LIQUID Call if not improving in 5-7 days I agree with the Chief Complaint, ROS, and Past Histories independently gathered by the clinical systems support specialist and the remaining scribed note accurately describes my personal service to the patient. Deisy Mcgee MD The documentation for this note was completed by Frannie Payton Ma acting as scribe for Deisy Mcgee MD. May 31, 2022 10:17 AM. Frannie Payton Ma documented in this encounter [facility] 05-26-2022 Miscellaneous Notes Mychart message sent to pt making him aware of message below from PCP. Made aware Rx was sent into local pharmacy. Tanya Mcgraw Ma I would suggest trying Tessalon as ordered first; if this does not help he would need appt to get codeine cough medicine. Deisy Mcgee MD Do you want a VV or okay to send in for pt. I've saved 4:20 appt . Advise. Tanya Mcgraw Ma documented in this encounter [facility] 07-12-2016 History of Past i llness Narrative Problem Noted Date Resolved Date Hypercalcemia 07/12/2016 07/16/2017 Lateral epicondylitis of elbow 09/15/2008 0 06/30/2014 Dysmetabolic syndrome X 08/18/2007 07/05/19 16 Chest pain, unspecified 01/28/2006 06/30/19 15 documented as of this encounter (statuses as of 05/26/2022) [facility] History of Past illness Narrative* Problem Noted Date Resolved Date Hypercalcemia 07/12/2016 07/16/2017 Lateral epicondylitis of elbow 09/15/2008 0 06/30/2014 Dysmetabolic syndrome X 08/18/2007 07/05/19 16 Chest pain, unspecified 01/28/2006 06/30/19 15 documented as of this encounter (statuses as of 05/31/2022) [facility] History of Past illness Narrative* Problem Noted Date Resolved Date Hypercalcemia 07/12/2016 07/16/2017 Lateral epicondylitis of elbow 09/15/2008 0 06/30/2014 Dysmetabolic syndrome X 08/18/2007 07/05/19 16 Chest pain, unspecified 01/28/2006 06/30/19 15 documented as of this encounter (statuses as of 06/05/2022) [facility] History of Past illness Narrative* Problem Noted Date Resolved Date Hypercalcemia 07/12/2016 07/16/2017 Lateral epicondylitis of elbow 09/15/2008 0 06/30/2014 Dysmetabolic syndrome X 08/18/2007 07/05/19 16 Chest pain, unspecified 01/28/2006 06/30/19 15 documented as of this encounter (statuses as of 07/18/2022) [facility] History of Past illness Narrative* Problem Noted Date Resolved Date Hypercalcemia 07/12/2016 07/16/2017 Lateral epicondylitis of elbow 09/15/2008 0 06/30/2014 Dysmetabolic syndrome X 08/18/2007 07/05/19 16 Chest pain, unspecified 01/28/2006 06/30/19 15 documented as of this encounter (statuses as of 08/22/2022) [facility] of Past illness Narrative* Problem Noted Date Diagnosed Date Resolved Date Hypercalcemia 07/12/2016 07/16/2017 Lateral epicondylitis of elbow 09/15/2008 06/30/2014 Dysmetabolic syndrome X 08/18/200706/22 Chest pain, unspecified 01/28/200602/2015 documented as of this encounter (statuses as of 04/07/2023) [facility] of Past illness Narrative* Problem Noted Date Diagnosed Date Resolved Date Hypercalcemia 07/12/2016 07/16/2017 Lateral epicondylitis of elbow 09/15/2008 06/30/2014 Dysmetabolic syndrome X 08/18/200706/22 Chest pain, unspecified 01/28/200602/2015 documented as of this encounter (statuses as of 08/06/2023) [facility] History of Past illness Narrative* Problem Noted Date Diagnosed Date Resolved Date Hypercalcemia 07/12/2016 07/16/2017 Lateral epicondylitis of elbow 09/15/2008 06/30/2014 Dysmetabolic syndrome X 08/18/200706/22 Chest pain, unspecified 01/28/200602/2015 documented as of this encounter (statuses as of 08/14/2023) [facility] noteNo assessment information availableWMem[facility] Work Phone: Evaluation note* Diagnosis Acute cough- Primary COVID-19 documented in this encounter [facility] note* Diagnosis Bronchitis- Primary Bronchitis, not specified as acute or chronic [facility] Diagnosis Screening for prostate cancer- Primary Special screening for malignant neoplasm of prostate [facility]* Diagnosis Wellness examination- Primary Essential hypertension, benign Hyperlipidemia LDL goal <100 Other and unspecified hyperlipidemia Impaired fasting glucose documented in this encounter [facility] note* Diagnosis Acute cough [facility] Diagnosis Hyperlipidemia LDL goal <100- Primary Other and unspecified hyperlipidemia Impaired fasting glucose Essential hypertension, benign documented in this encounter [facility] note* Diagnosis Wellness examination- Primary Essential hypertension, benign Impaired fasting glucose Hyperlipidemia LDL goal <100 Other and unspecified hyperlipidemia Need for vaccination Need for prophylactic vaccination and inoculation against unspecified single disease documented in this encounter [facility] note* Diagnosis Essential hypertension, benign- Primary Impaired fasting glucose Hyperlipidemia LDL goal <100 Other and unspecified hyperlipidemia Screening for depression [facility] Diagnosis Hyperlipidemia LDL goal <100 Other and unspecified hyperlipidemia [facility] Diagnosis Hyperlipidemia LDL goal <100 Other and unspecified hyperlipidemia documented in this encounter [facility] note* Diagnosis Essential hypertension, benign- Primary Hyperlipidemia LDL goal <100 Other and unspecified hyperlipidemia Impaired fasting glucose Wellness examination documented in this encounter [facility] Summary Purpose Family History No Family History Records FoundNo Family History Records FoundNo Family History Records FoundNo Family History Records FoundNo Family History Records Found Advance Directives No Advanced Directives Records Found Advance Directive Response Recorded Date/ Time Living Will Yes April 15 4:27pm Power of Garment Tag Stringer Yes April 15, 2019 4:27pm Chief Complaint and Reason for Visit Chief Complaint PREOP PREOP Additional Source Comments (unrecognized sect ion and content) No Status Records FoundNo Status Records FoundNo Status Records FoundNo Status Records FoundNo Status Records Found INFORMATION SOURCE (unrecogn ized section and content) DATE CREATED AUTHOR 05/06/2019 [facility] DATE CREATED AUTHOR AUTHOR'S ORGANIZ ATION 04/20/2020 [facility] DATE CREATED AUTHOR AUTHOR'S ORGANIZ ATION 09/16/2021 [facility] DATE CREATED AUTHOR AUTHOR'S ORGANIZ ATION 09/24/2021 [facility] DATE CREATED AUTHOR AUTHOR'S ORGANIZ ATION 04/19/2025 [facility] Goals (unrecognized section and content) Goals may be documented in a n alternate section Source Comments (unrecognize d section and content) In the event this informatio n is protected by the Federal Confidentiality of Alcohol and Drug Abuse Patient Records regulations: The Federal rules restrict any use of the information to criminally investigate or prosecute any alcohol or drug abuse patient.[facility] the event this information is protected by the Federal Confidentiality of Alcohol and Drug Abuse Patient Records regulations: The Federal rules restrict any use of the information to criminally investigate or prosecute any alcohol or drug abuse patient.[facility] the event this information is protected by the Federal Confidentiality of Alcohol and Drug Abuse Patient Records regulations: The Federal rules restrict any use of the information to criminally investigate or prosecute any alcohol or drug abuse patient.[facility] Administration[facility] the event this information is protected by the Federal Confidentiality of Alcohol and Drug Abuse Patient Records regulations: The Federal rules restrict any use of the information to criminally investigate or prosecute any alcohol or drug abuse patient.[facility] the event this information is protected by the Federal Confidentiality of Alcohol and Drug Abuse Patient Records regulations: The Federal rules restrict any use of the information to criminally investigate or prosecute any alcohol or drug abuse patient.[facility] Health AdministrationIn the event this information is protected by the Federal Confidentiality of Alcohol and Drug Abuse Patient Records regulations: The Federal rules restrict any use of the information to criminally investigate or prosecute any alcohol or drug abuse patient.[facility] Health AdministrationIn the event this information is protected by the Federal Confidentiality of Alcohol and Drug Abuse Patient Records regulations: The Federal rules restrict any use of the information to criminally investigate or prosecute any alcohol or drug abuse patient.[facility] AdministrationIn the event this information is protected by the Federal Confidentiality of Alcohol and Drug Abuse Patient Records regulations: The Federal rules restrict any use of the information to criminally investigate or prosecute any alcohol or drug abuse patient.[facility] AdministrationIn the event this information is protected by the Federal Confidentiality of Alcohol and Drug Abuse Patient Records regulations: The Federal rules restrict any use of the information to criminally investigate or prosecute any alcohol or drug abuse patient.[facility] AdministrationIn the event this information is protected by the Federal Confidentiality of Alcohol and Drug Abuse Patient Records regulations: The Federal rules restrict any use of the information to criminally investigate or prosecute any alcohol or drug abuse patient.[facility] AdministrationIn the event this information is protected by the Federal Confidentiality of Alcohol and Drug Abuse Patient Records regulations: The Federal rules restrict any use of the information to criminally investigate or prosecute any alcohol or drug abuse patient.[facility] AdministrationIn the event this information is protected by the Federal Confidentiality of Alcohol and Drug Abuse Patient Records regulations: The Federal rules restrict any use of the information to criminally investigate or prosecute any alcohol or drug abuse patient.[facility] AdministrationIn the event this information is protected by the Federal Confidentiality of Alcohol and Drug Abuse Patient Records regulations: The Federal rules restrict any use of the information to criminally investigate or prosecute any alcohol or drug abuse patient.[facility] Care Teams (unrecognized sec tion and content) Piano Mechanic Relationship Specialty Start Date End Date Deisy Mcgee MD [address] [place] [address] PCP - General Family Medicine 06/17/21 Piano Mechanic Relationship Specialty Start Date End Date Deisy Mcgee MD [address] [place] [address] PCP - General Family Medicine 06/17/21 Piano Mechanic Relationship Specialty Start Date End Date Deisy Mcgee MD [address] [place] [address] PCP - General Family Medicine 06/17/21 Piano Mechanic Relationship Specialty Start Date End Date Deisy Mcgee MD [address] [place] [address] PCP - General Family Medicine 06/17/21 Piano Mechanic Relationship Specialty Start Date End Date Deisy Mcgee MD [address] [place] [address] PCP - General Family Medicine 06/17/21 Piano Mechanic Relationship Specialty Start Date End Date Deisy Mcgee MD [address] [place] [address] PCP - General Family Medicine 06/17/21 Piano Mechanic Relationship Specialty Start Date End Date Deisy Mcgee MD [address] [place] [address] PCP - General Family Medicine 06/17/21 Piano Mechanic Relationship Specialty Start Date End Date Deisy Mcgee MD [address] [place] [address] PCP - General Family Medicine 06/17/21 Piano Mechanic Relationship Specialty Start Date End Date Deisy Mcgee MD [address] [place] [address] PCP - General Family Medicine 06/17/21 Piano Mechanic Relationship Specialty Start Date End Date Deisy Mcgee MD [address] [place] [address] PCP - General Family Medicine 06/17/21 Piano Mechanic Relationship Specialty Start Date End Date Deisy Mcgee MD [address] [place] [address] PCP - General Family Medicine 06/17/21 Elizabeth Pineda, EMERGENCY PHYSICIAN.[employer] [address] [place] [address] Water Safety Teacher Family Medicine 05/29/24 Jet Morin APRN.[employer] [address] [place] [address] Water Safety Teacher Family Medicine 06/07/24 Piano Mechanic Relationship Specialty Start Date End Date Deisy Mcgee MD [address] [place] [address] PCP - General Family Medicine 06/17/21 Jet Morin APRN.[employer] [address] [place], [place] [address] Water Safety Teacher Family Medicine 06/07/24 Reason for Visit (unrecogniz ed section and content) Reason Comments Cough X 2 weeks Specialty Diagnoses / Procedures Referred By Contac t Referred To Contact Family Medicine / FAMILY MEDICINE Diagnoses Cough Cough symptoms Procedures PHYS/QHP TELEPHONE EVALUATION 5-10 MIN VIDEO PRIMARY EST Deisy Mcgee MD [address] [place] [address] Deisy Mcgee MD [address] [place] [address] Referral ID Status Reason Start Date Expiration Date Visits Re quested Visits Authorized [id number] Closed 05/31/2022 06/21/2022 1 1 Reason Comments Orders Reason Comments Wellness Reason Comments F/U 6 Month Reason Onset Date Comments Refill Request 03/24/2024 Reason Comments Medication Question Lisinopril/Hydrochlo rothiazide FOR RECORDS PERTAINING TO PATIENTS WHO ARE OR HAVE BEEN ENROLLED IN A CHEMICAL DEPENDENCY/SUBSTANCEABUSE PROGRAM, SOME INFORMATION MAY BE OMITTED. This clinical summary was aggregated from multiple sources. Caution should be exercised in using it in the provision of clinical care. This summary normalizes information from multiple sources, and as a consequence, information in this document may materially change the coding, format and clinical context of patient data. In addition, data may be omitted in some cases. CLINICAL DECISIONS SHOULD BE BASED ON THE PRIMARY CLINICAL RECORDS. [employer] provides no warranty or guarantee of the accuracy or completeness of information in this document.
[2025-05-25] MEDS: 0.9% Saline Lock 10 ML Syringe IV (20:42)
[2025-05-25] MEDS: APIXABAN 5 MG TABLET PO (20:42)
[2025-05-26 01:05] VITALS: BP 113/71; PULSE 51; RESP 16; TEMP 36.7; O2SAT 98
[2025-05-26 05:45] VITALS: BP 124/73; PULSE 52; RESP 14; TEMP 36.9; O2SAT 98
--- NOTE | 2025-05-26 07:37 | PCM.PN.CARD ---
Subjective Subjective Patient seen and evaluated. Doing well. Objective Data Vital Signs: Vital Signs Temp Pulse Resp BP Pulse Ox O2 Del Method 98.4 F 52 L 14 124/73 H 98 Room Air 05/26/25 05:45 05/26/25 05:45 05/26/25 05:45 05/26/25 05:45 05/26/25 05:45 05/26/25 05:45 Oxygen Delivery Method Room Air Weight: 189 lb 9.561 oz Body Mass Index (BMI) 26.4 Intake & Output: Intake and Output for Last 24 Hours 05/24/25 05/25/25 05/26/25 23:59 23:59 23:59 Intake Total 700 / 700 400 / 400 Balance 700 / 700 400 / 400 Cardiology Labs/Tests Rhythm: EKG: Normal sinus rhythm ECHO: Stress Test: Cardiac Cath: PCI: CT Surgery: Holter monitor: EPS: PPM: CXR: Chest CT Scan: Physical Exam Const alert and oriented x3 Eyes PERRL Neck full ROM Carotids: normal carotid upstroke Chest inspection of chest normal Cardio regular rate and regular rhythm Palpation: normal PMI Rate: regular rate Extremity no clubbing, cyanosis or edema Assessment & Plan Assessment/Plan (1) Atrial flutter: PLAN: . Patient is status post atrial flutter ablation successfully. This morning patient is noted to be in sinus rhythm. The plan is to discharge him for outpatient follow-up in a month. He will continue with the anticoagulation and beta-judith for a month and will be seen in the office and at that time if he is maintaining sinus rhythm his anticoagulation can be discontinued especially as he has a chads Vascor of 1. Has been discussed with him and the integrated pest management technician and they agree.
--- NOTE | 2025-05-26 07:41 | DCINST_ITS ---
Discharge Instructions DC O2, CPAP, BIPAP needs Home O2 Discharge instructions: No Dressing / Incision Discharge Activity: Return to Normal Activity Lifting Restrictions: 10 pounds and also avoid any pushing or pulling for 3 days after your test. Additional Activity Instructions:: You must have someone drive you home. Do not drive until instructed by your doctor. You must have someone stay with you all night after your test. Rest in bed or on the couch until the next morning. Limit the number of times you go up and down stairs the day of your test. Apply pressure to the puncture site if you sneeze or cough. Dressing / Incision Call your doctor if your incision/area has: Increased Pain/ Swelling, Increased Redness, Foul Smelling Discharge and Swelling at the incision site Call your doctor if you observe: Fever of 101 or Higher Remove Dressing in: 2 days Additional Dressing/Incision Instructions:: Keep the dressing (bandage) on until the next morning. You may then shower, but do not take a tub bath for 5 days after your test. It is normal to have some tenderness and discomfort at the puncture site. Sometimes bruising also occurs. However, if pain, numbness, or coldness occurs below the puncture site (in your leg, toes, arms or fingers) call your doctor at once. You may have a small, marble sized knot at the puncture site. This is normal. Do not rub it. It will go away in 4-6 weeks. Bleeding can occur from the area where the puncture was done. Blood may spurt or drip from the site. If blood spurts, apply pressure right away to stop bleeding and call 911. Although rare, bleeding into the tissue (hematoma) can also occur. If this happens, a large, firm area "goose egg" under the skin will appear. If any of these occur, lie down as flat as you can and have someone apply firm pressure to the cath site with a gauze pad or a clean washcloth for 10-15 minutes. Call 911 or go to the Emergency Department. Follow Up Care When: in june . Office will call for appointment Test Results: Test results from this visit will be discussed in further detail at your follow- up appointment, if applicable. Discharge Plan Admission Admit Date/Time: 05/25/25 14:19 Attending Provider: Wilder Galeano Primary Care Provider: Oly Pendleton Discharge Orders/Prescriptions Prescriptions: Continued atorvastatin 10 mg tablet 10 mg PO QDAY metoprolol succinate 25 mg tablet extended release 24 hr 25 mg PO QDAY Eliquis 5 mg tablet 5 mg PO BID lisinopril-hydrochlorothiazide 1 EACH tablet 1 ea PO DAILY Referrals / Follow Up: lOy Pendleton MD [Primary Care Provider, Family Practice] Disposition Disposition (needs filled in before D/C Order can be placed): Home, Self Care
[2025-05-26 08:30] VITALS: BP 122/75; PULSE 54; RESP 16; TEMP 37; O2SAT 99
[2025-05-26] MEDS: APIXABAN 5 MG TABLET PO (08:37)
--- NOTE | 2025-05-26 10:09 | CASEMGMT ---
Patient has order for discharge. RN CM in to discuss needs at discharge, at bedside. Patient denies needs or help at discharge. Patient had no further questions or concerns.
== END 2025-05-26 07:41 | disposition home or self-care (01) ==
LOC: PCU 05-26 07:41
PROVIDERS: Admitting Provider Internal Medicine Clinical Cardiac Electrophysiology; PCP Pediatrics; Referring Provider Internal Medicine Clinical Cardiac Electrophysiology; Visit Provider Internal Medicine Clinical Cardiac Electrophysiology
DX: I48.92 Unspecified atrial flutter (principal); I48.91 Unspecified atrial fibrillation; I10 Essential (primary) hypertension; R06.02 Shortness of breath; R00.1 Bradycardia, unspecified; Z79.899 Other long term (current) drug therapy; Z79.01 Long term (current) use of anticoagulants; F17.200 Nicotine dependence, unspecified, uncomplicated; R53.83 Other fatigue
CPT/HCPCS: 93653; 99152; 99153; 99221; C1730; C1731; C1893; C1894; C2630; A4216; G0378